=== PATIENT | female | born 1950 | race Caucasian/White ===

== ENCOUNTER 2020-07-26 10:06 | Outpatient (CLI) | payer MEDICARE, BC, SELFPAY ==
--- NOTE | ~2020-07-26 | MM_ITS ---
EXAMINATION: MM screening amairani BI w patrick HISTORY: Screening TECHNIQUE: Craniocaudal and mediolateral oblique 3-D tomosynthesis images were obtained and synthetic 2-D images were generated. CAD analysis was submitted and interpreted. COMPARISON: Comparison to multiple prior studies sequentially, with oldest reviewed study dated 10/19. BREAST PARENCHYMAL COMPOSITION: There are scattered areas of fibroglandular density. FINDINGS: There is no evidence of suspicious mass, calcification, or architectural distortion to sugg est malignancy in either breast. There has been no suspicious interval change. IMPRESSION: 1. No mammographic evidence of malignancy. 2. Recommend routine screening mammography in one year. BI-RADS Category 1: Negative Reviewed, dictated and finalized at location A.
== END 2020-07-26 10:07 | disposition home or self-care (01) ==
LOC: ANHIMG 10:09
PROVIDERS: Visit Provider Internal Medicine
DX: Z12.31 Encounter for screening mammogram for malignant neoplasm of breast (principal)
CPT/HCPCS: 77063; 77067

== ENCOUNTER 2020-12-09 09:24 | Outpatient (CLI) | payer MEDICARE, BC, SELFPAY ==
--- NOTE | 2020-12-09 09:30 | ECG_ITS ---
Measurements Intervals [place] Rate: 80 P: 56 DE: 162 QRS: -4 QRSD: 98 T: 39 QT: 379 QTc: 438 Interpretive Statements SINUS RHYTHM DELAYED PRECORDIAL R/S TRANSITION BASELINE ARTIFACT- I, II, III, AVR, AVL, AVF, V1-V3 BORDERLINE ECG Electronically Signed On 12-09-2020 10:03:12 CDT by Adonis Lamb D.O.
== END 2020-12-09 09:25 | disposition home or self-care (01) ==
PROVIDERS: Visit Provider Orthopaedic Surgery
DX: Z01.818 Encounter for other preprocedural examination (principal); I10 Essential (primary) hypertension
CPT/HCPCS: 93005

== ENCOUNTER 2020-12-16 00:11 | Day surgery (SDC) | payer MEDICARE, BC, SELFPAY ==
[2020-12-06 12:56] VITALS: BMI 24.8
--- NOTE | 2020-12-15 12:37 | PM.IMHP ---
H&P: HPI History of Present Illness Date/Time: 12/15/20 12:37 Chief Complaint: Right foot pain Narrative: 70-year-old woman with right hallux metatarsophalangeal arthrodesis. Failed non operative treatment with injections, custom inserts, accommodative shoes and activity modification. Has done well with previous surgeon left foot. Presents now for surgery the right foot. Review of Systems Review of Systems: All systems reviewed & are unremarkable except as noted in HPI and below Constitutional: Constitutional: Denies fever(s) and Denies headache(s) ENT: Denies headache(s) Cardiovascular: Cardiovascular: Denies chest pain, Denies diaphoresis, Denies lightheadedness, Denies palpitations and Denies dyspnea Respiratory: Respiratory: Denies dyspnea Gastrointestinal: Gastrointestinal: Denies abdominal pain, Denies constipation, Denies nausea and Denies vomiting Genitourinary: Genitourinary: Reports nocturia, Denies dysuria, Denies urinary hesitancy and Denies urinary urgency Musculoskeletal: Musculoskeletal: Reports arthralgias (Left Knee ), Reports joint swelling (Left Knee ) and Reports limited range of motion (ROM limited due to recent surgical intervention LEFT Knee ) Neurologic: Denies headache(s) Endocrine: Endocrine: Denies palpitations PMFSH Past Medical History Medical History Anxiety Arthritis 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 Her Primary is Dr. Hinojosa. She is listed as full code Smoking packs per day: 1 Smoking cigarettes per day: 20.0 Years smoked: 12 Smoking pack-years: 12.00 Smoking status: Former smoker Tobacco type: cigarettes Second hand tobacco smoke exposure: No Smoking end date: 03/12/17 Additional smoking assessment comments: STATES QUITTING 1980 Alcohol intake: current Drinks per week: 2 Substance use: never Substance use type: does not use Gender identity (if verbalized by the patient): Female Spiritual care concerns: No Agree to blood products: Yes Meds Home Medications and Allergies Home Medications Medication Instructions Recorded Confirmed Type alprazolam 0.5 mg tablet 0.5 mg PO .PRN tablet 02/27/19 12/06/20 History cetirizine 10 mg tablet 10 mg PO DAILY PRN 02/27/19 12/06/20 History cholecalciferol (vitamin D3) 50 50 mcg PO DAILY 02/27/19 12/06/20 History mcg (2,000 unit) capsule fluticasone propionate 50 2 spray NASAL DAILY 02/27/19 12/06/20 History mcg/actuation nasal spray,suspension losartan 50 mg PO BID 03/14/19 12/06/20 History lutein extract-zeaxanthin ext 1 cap PO DAILY 03/14/19 12/06/20 History acetaminophen 500 mg capsule 500 mg PO Q6H PRN 09/19/19 12/06/20 History escitalopram oxalate 5 mg tablet See Rx Instructions .ROUTE .COMPLEX 09/19/19 12/06/20 History meloxicam 7.5 mg tablet 7.5 mg PO DAILY 09/19/19 12/06/20 History amoxicillin 500 mg capsule 500 mg PO ONCE #8 cap NS 07/08/20 12/06/20 Rx scopolamine base 1 mg over 3 days 1 patch TRANSDERMAL Q3D PRN #1 ea 10/25/20 12/06/20 Rx transdermal patch turmeric root extract 1,000 mg PO DAILY 12/06/20 12/06/20 History
--- NOTE | 2020-12-15 12:48 | WPDANESEPPF ---
Anes - Initial Pre Proc Eval Procedure: Operation Date: 12/16/20 10:30 Proposed Procedures p Right Hallux Metatarsophalangeal Arthrodesis - Lester Kearns MD Date/Time: 12/15/20 12:48 Surgeon: Lester Kearns MD Pre Op Diagnosis: rt hallux rigidus,rt hallux rigidus arthr,sesamoid Patient Data Age: 70 Gender: F Height: 1.75 m Weight: 76.36 kg Allergies Allergy/AdvReac Type Severity Reaction Status Date / Time No Known Allergies Allergy Verified 12/16/20 09:37 Home Medications Medication Instructions Recorded Confirmed Type alprazolam 0.5 mg tablet 0.5 mg PO .PRN tablet 02/27/19 12/06/20 History cetirizine 10 mg tablet 10 mg PO DAILY PRN 02/27/19 12/06/20 History cholecalciferol (vitamin D3) 50 50 mcg PO DAILY 02/27/19 12/06/20 History mcg (2,000 unit) capsule fluticasone propionate 50 2 spray NASAL DAILY 02/27/19 12/06/20 History mcg/actuation nasal spray,suspension losartan 50 mg PO BID 03/14/19 12/06/20 History lutein extract-zeaxanthin ext 1 cap PO DAILY 03/14/19 12/06/20 History acetaminophen 500 mg capsule 500 mg PO Q6H PRN 09/19/19 12/06/20 History escitalopram oxalate 5 mg tablet See Rx Instructions .ROUTE .COMPLEX 09/19/19 12/06/20 History meloxicam 7.5 mg tablet 7.5 mg PO DAILY 09/19/19 12/06/20 History amoxicillin 500 mg capsule 500 mg PO ONCE #8 cap NS 07/08/20 12/06/20 Rx scopolamine base 1 mg over 3 days 1 patch TRANSDERMAL Q3D PRN #1 ea 10/25/20 12/06/20 Rx transdermal patch turmeric root extract 1,000 mg PO DAILY 12/06/20 12/06/20 History scopolamine base 1 mg over 3 days 1 patch TRANSDERMAL Q3D PRN #1 ea 12/13/20 Rx transdermal patch Patient hx anesthesia problems: none Family hx anesthesia problems: none Results Review: All pre-operative results and documents have been reviewed as part of the pre-operative evaluation. 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 Her Primary is Dr. Hinojosa. She is listed as full code Smoking packs per day: 1 Smoking cigarettes per day: 20.0 Years smoked: 12 Smoking pack-years: 12.00 Smoking status: Former smoker Tobacco type: cigarettes Second hand tobacco smoke exposure: No Smoking end date: 03/12/17 Additional smoking assessment comments: STATES QUITTING 1980 Alcohol intake: current Drinks per week: 3 Substance use: never Substance use type: does not use Living arrangements: with family Gender identity (if verbalized by the patient): Female Spiritual care concerns: No Agree to blood products: Yes Anes - Eval Final PreProcedure Day of Procedure 12/15/20 12:48 Patient weight: normal Heart: regular rate and rhythm Lungs: clear to auscultation and normal air movement Airway: Mallampati scale class II Neurological: alert and oriented Last oral intake: >/= 8 hours ASA classification: II Emergent: no Anesthetic plan: proceed Anesthesia type and monitoring: general LMA and standard monitoring Results Review: All pre-operative results and documents have been reviewed as part of t
[2020-12-16] VITALS (9 sets, daily range): BP systolic 120–148; BP diastolic 61–92; PULSE 63–82; RESP 12–20; TEMP 36.3; O2SAT 97–100
--- NOTE | ~2020-12-16 | XR_ITS ---
EXAMINATION: XR surgery orthopedic DATE: 12/16/2020 11:38 INDICATION: Arthrodesis in the right foot TECHNIQUE: 3 fluoroscopic images of the right forefoot were obtained during procedure performed by Dr Mariama Kearns. Radiologist was not present for the imaging or procedure. The amount of fluoroscopy time u sed during this procedure was 0.2 minutes. COMPARISON: None. FINDINGS: Right first metatarsophalangeal arthrodesis fixed with a cannulated compression screw and dorsal plat e and screws. Alignment is essentially anatomic. No fracture. Mild osteoarthritis at a few of the int erphalangeal joints. Expected small amount of soft tissue gas at the operative bed. IMPRESSION: 1. Instrumented right first metatarsophalangeal arthrodesis, negative for postoperative purposes. Reviewed, dictated and finalized at location B. IMPRESSION: 1. Instrumented right first metatarsophalangeal arthrodesis, negative for posto perative purposes.
--- NOTE | 2020-12-16 06:56 | WPDHPUPDATE1 ---
History and Physical Update Update Date/Time: 12/16/20 06:56 History and Physical has been reviewed, including an updated exam of the patient. There are NO changes in the patient's condition. Risks, benefits, and alternatives have been discussed and questions answered. Patient agrees to proceed with procedure.
[2020-12-16] MEDS: LACTATED RINGERS 1,000 ML 30 ML IV CONT ×2 (09:42→11:43)
[2020-12-16] MEDS: ACETAMINOPHEN 500 MG TABLET 1000 MG PO (09:52)
[2020-12-16] MEDS: KETOROLAC 15 MG/ML VIAL (*BKC) IV PUSH (09:52)
[2020-12-16] MEDS: ceFAZolin 2 GM/D5W 50 ML 2 GM/50 ML BAG IVPB (10:20)
[2020-12-16] MEDS: BUPIVACAINE HCL 0.5% PF 30 ML VIAL INFILTRATE (10:56)
--- NOTE | 2020-12-16 12:06 | W.PM.PROC2 ---
Procedure Note - Detailed Date of Procedure 12/16/20 Pre-op Diagnosis rt hallux rigidus Post-op Diagnosis same Procedure Performed Right hallux metatarsophalangeal arthrodesis Surgeon Lester Kearns MD Coding Support Specialist 1st assistant director of public works Anesthesia general Indications 70-year-old woman with right hallux metatarsophalangeal arthrodesis. Pain with weight-bearing activities. Unrelieved with conservative measures. Presents for operative treatment. Has had same on the left side and did well. Findings Large dorsal osteophyte 1 cm diameter hallux metatarsophalangeal joint. Severe degenerative changes throughout the joint. Description of Procedure What was done: Patient identified in the preoperative holding. Informed consent given. Operative extremity marked. Patient received intravenous antibiotics. Patient brought to the operating room where underwent general anesthetic by anesthesia team. Positioned supine on operating room table. Time-out performed confirming the patient, site of the surgery and the plan. Right foot then prepped and draped in usual sterile surgical fashion using ChloraPrep skin solution. Foot and Ankle exsanguinated and a calf tourniquet inflated to 250 mmHg. Dorsal longitudinal incision made for the hallux over the MTP joint with a 15 blade knife. Hemostasis controlled electrocautery. Dorsal capsulotomy performed in line with skin incision. Metatarsophalangeal joint exposed. Almost complete cartilage loss from the metatarsal head noted. 75% of the dorsal portion of the phalangeal side with complete cartilage loss. Reaming of the joint then performed. Thorough irrigation. Local bone graft packed into the site and the joint was reduced and pinned. Image intensification confirm reduction. Fixation achieved with a dorsal compression plate and a 3.5 mm compression screw. position verified with image intensification. Wound thoroughly irrigated the capsule closed with 0 Vicryl interrupted suture. Subcutaneous tissue repaired with 3-0 Monocryl interrupted suture and skin repaired with 4-0 nylon running suture. Tourniquet released. Good capillary refill noted in the toes. Sterile dressing applied. The patient was then woken from anesthesia, extubated and taken to the recovery room in stable condition. All sponge, needle, instrument counts were correct at the end of the case. Implants Arthrex metatarsophalangeal arthrodesis plate with locking and nonlocking screws. 3.5 mm headless compression screw x1. Estimated Blood Loss 10 Tourniquet Time 60 Drains No Packing No Pathology none sent Complications None Condition stable Disposition PACU
== END 2020-12-16 14:00 | disposition home or self-care (01) ==
PROVIDERS: Visit Provider Orthopaedic Surgery
PROC: (CPT 28750; principal; 2020-12-16 10:30)
DX: M20.21 Hallux rigidus, right foot (principal); M19.071 Primary osteoarthritis, right ankle and foot; I10 Essential (primary) hypertension; I34.1 Nonrheumatic mitral (valve) prolapse; F41.9 Anxiety disorder, unspecified; I73.00 Raynaud's syndrome without gangrene; Z87.891 Personal history of nicotine dependence
CPT/HCPCS: 28750; A9270; C1769; J0690; J1100; J1200; J1885; J2405; J2704; J7120

== ENCOUNTER 2021-09-05 08:39 | Outpatient (CLI) | payer MEDICARE, BC, SELFPAY ==
--- NOTE | ~2021-09-05 | MM_ITS ---
EXAMINATION: MM screening amairani BI w patrick HISTORY: Screening TECHNIQUE: Craniocaudal and mediolateral oblique 3-D tomosynthesis images were obtained and synthetic 2-D images were generated. CAD analysis was submitted and interpreted. COMPARISON: Comparison to multiple prior studies sequentially, with oldest reviewed study dated 10/19. BREAST PARENCHYMAL COMPOSITION: Breast composed of scattered areas of fibroglandular density FINDINGS: There is no evidence of suspicious mass, calcification, or architectural distortion to sugg est malignancy in either breast. There has been no suspicious interval change. IMPRESSION: 1. No mammographic evidence of malignancy. 2. Recommend routine screening mammography in one year. BI-RADS Category 1: Negative Reviewed, dictated and finalized at location A.
== END 2021-09-05 08:40 | disposition home or self-care (01) ==
LOC: ANHIMG 08:43
PROVIDERS: Visit Provider Internal Medicine
DX: Z12.31 Encounter for screening mammogram for malignant neoplasm of breast (principal)
CPT/HCPCS: 77063; 77067

== ENCOUNTER 2021-11-22 12:53 | Outpatient (CLI) | payer MEDICARE, BC, SELFPAY ==
--- NOTE | ~2021-11-22 | DEXA_ITS ---
Bone Density Report Name: SAMMIE HUNTLEY Age: 71 Sex: Female Ethnicity: White Date of : 1950 Indication: osteopenia; postmenopausal Referring Provider: TURKS AND CAICOS ISLANDER, GEOVANY Farooq Study: Bone densitometry was performed. Exam Date: November 22, 2021 Accession number: [id number] Bone Density: Region BMD T-score Z-score Classification AP Spine(L1-L4) 1.015 -0.3 1.9 Normal Femoral Neck (Left) 0.651 -1.8 0.1 Osteopenia Total Hip (Left) 0.790 -1.2 0.3 Osteopenia Femoral Neck (Right) 0.733 -1.0 0.8 Normal Total Hip (Right) 0.752 -1.6 0.0 Osteopenia Total Hip Mean 0.771 -1.4 0.2 Osteopenia World Health Organization criteria for BMD impression classify patients as: Normal (T-score at or above -1.0), Osteopenia (T-score between -1.0 and -2.5), or Osteoporosis (T-score at or below -2.5). 10-year Fracture Risk(1): Major Osteoporotic Fracture 11% Hip Fracture 1.9% Reported Risk Factors: [place] (), Neck BMD=0.651, BMI=26.7 (1) FRAX(R) Version 3.08. Fracture probability calculated for an untreated patient. Fracture probability may be lower if the patient has received treatment. Previous Exams: Region Exam Age BMD T-score BMD Change BMD Change Date g/cm2 vs Baseline vs Previous Total Hip(Left) 11/22/2021 71 0.790 -1.2 0.035 (4.6%)* 0.035 (4.6%)* 07/16/2018 67 0.755 -1.5 Total Hip(Right) 11/22/2021 71 0.752 -1.6 0.029 (4.1%)* 0.029 (4.1%)* 07/16/2018 67 0.722 -1.8 *Denotes significance at 95% confidence level, LSC for Total Hip = 0.027 g/cm2 Clinical Information Provided by Patient: Has used the following medications: Vitamin D Patient maximum height was 69.5 Menopause Age: 42 Drinks caffeinated beverages Onset of menses at age 10 Number of children 0 Impression: The patient has low bone mass, based on the Left Femoral Neck T-score. The patient has an estimated ten-year risk of hip fracture of 1.9% and an estimated ten-year risk of major fracture of 11%, based on the WHO FRAX algorithm. No significant bone loss was observed. Discussion: BONE DENSITY IS LOW AT ONE OR MORE SKELETAL SITES. This patient's lowest T-score is low at one or more skeletal sites. It meets the World Health Organization's (WHO) criteria for ?low bone mass? (T-score between -1.0 and -2.5). The patient's 10-year risk of fracture as calculated by FRAX is less than the threshold where pharmacological therapy is recommended by the National Osteoporosis Foundation (NOF).
== END 2021-11-22 12:54 | disposition home or self-care (01) ==
PROVIDERS: Visit Provider Internal Medicine
DX: Z78.0 Asymptomatic menopausal state (principal); M85.852 Other specified disorders of bone density and structure, left thigh; M85.851 Other specified disorders of bone density and structure, right thigh
CPT/HCPCS: 77080

== ENCOUNTER 2022-06-09 00:45 | Day surgery (SDC) | payer MEDICARE, BC, SELFPAY ==
[2022-05-26 15:00] VITALS: BMI 25.1
[2022-06-09 07:47] VITALS: BP 157/70; PULSE 74; RESP 16; TEMP 36.7; O2SAT 99; BMI 25.7
--- NOTE | 2022-06-09 07:56 | WPDANESEPPF ---
Anes - Initial Pre Proc Eval Procedure: Operation Date: 06/09/22 08:30 Proposed Procedures p Screening Colonoscopy - Amrit Aleman MD Date/Time: 06/09/22 07:56 Surgeon: Amrit Aleman MD Pre Op Diagnosis: neoplasm screening Patient Data Age: 71 Gender: F Height: 1.75 m Weight: 78.9 kg Last Vital Signs Temp 36.7 C 06/09/22 07:47 Pulse 74 06/09/22 07:47 Resp 16 06/09/22 07:47 BP 157/70 H 06/09/22 07:47 Pulse Ox 99 06/09/22 07:47 O2 Del Method Room Air 06/09/22 07:47 Allergies Allergy/AdvReac Type Severity Reaction Status Date / Time No Known Allergies Allergy Verified 06/09/22 07:46 Home Medications Medication Instructions Recorded Confirmed Type alprazolam 0.5 mg tablet 0.5 mg PO .PRN ANXIETY 02/27/19 06/09/22 History cholecalciferol (vitamin D3) 50 50 mcg PO DAILY 02/27/19 06/09/22 History mcg (2,000 unit) capsule fluticasone propionate 50 2 spray intranasal DAILY 02/27/19 06/09/22 History mcg/actuation nasal spray,suspension losartan 50 mg tablet 50 mg PO BID 03/14/19 06/09/22 History acetaminophen 500 mg capsule 500 mg PO Q6H PRN Pain 09/19/19 06/09/22 History escitalopram oxalate 5 mg tablet See Rx Instructions .Route .COMPLEX 09/19/19 06/09/22 History cetirizine 10 mg tablet (24Hour 10 mg PO DAILY Congestion 07/05/21 06/09/22 History Allergy) lutein extract 15 mg-zeaxanthin 1 cap PO DAILY 07/05/21 06/09/22 History extract 0.7 mg capsule meloxicam 7.5 mg tablet 7.5 mg PO DAILY 07/05/21 06/09/22 History guaifenesin 600 mg tablet, 600 mg PO BID PRN Congestion 05/26/22 06/09/22 History extended release 12 hr (Mucinex) psyllium 1 packet PO DAILY 05/26/22 06/09/22 History Patient hx anesthesia problems: post op nausea/vomiting Family hx anesthesia problems: none Results Review: All pre-operative results and documents have been reviewed as part of the pre-operative evaluation. 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 Encounter for postoperative care Hallux rigidus of right foot HTN (hypertension) Left shoulder pain MVP (mitral valve prolapse) Raynaud's disease b/l hands Right hip pain Right shoulder pain Rotator cuff tendonitis Spinal stenosis Trochanteric bursitis, right hip Vision abnormalities Wears glasses Surgical History Surgical History History of cholecystectomy History of tonsillectomy Status post total knee replacement, left Family History Family History Father Hypertension Family history of arthritis Family history of malignant neoplasm Social History Social History Social History: Patient lives with Cliff, whom she designates as MDM. Her Primary is Dr. Hinojosa. She is listed as full code Smoking packs per day: 1 Smoking cigarettes per day: 20.0 Years smoked: 12 Smoking pack-years: 12.00 Smoking status: Former smoker Tobacco type: cigarettes Second hand tobacco smoke exposure: No Smoking end date: 03/12/17 Additional smoking assessment comments: STATES QUITTING 1980 Alcohol intake: current Drinks per week: 3 Alcohol use details: 1 drink occasionally in social settings Substance use: never Substance use type: does not use Living arrangements: with family Gender identity (if verbalized by the patient): Female Spiritual care concerns: No Agree to blood products: Yes Anes - Eval Final PreProcedure Day of Procedure 06/09/22 07:56 Patient weight: normal Heart: regular rate and rhythm Lungs: clear to auscultation Airway: Mallampati scale class II Neurological: alert and o
[2022-06-09] MEDS: LACTATED RINGERS 1,000 ML 150 ML IV CONT (07:58)
[2022-06-09] MEDS: ONDANSETRON INJ 4 MG/2 ML VIAL IV PUSH (08:05)
--- NOTE | 2022-06-09 08:19 | PM.HPGS ---
History of Present Illness History of Present Illness Consent: Risks, benefits, and alternatives have been discussed and questions answered. Patient agrees to proceed with procedure. Chief complaint: neoplasm screening Narrative: Josefa Pate is a 71 year old female Presents for screening colonoscopy. Patient's current weight appetite and bowel movements are normal. Patient denies abdominal pain. She has had no bleeding. Family history noncontributory. Patient has previous colonoscopy 10 years ago was unremarkable. By history. Review of Systems Review of Systems: Review of systems is noncontributory. 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 Encounter for postoperative care Hallux rigidus of right foot HTN (hypertension) Left shoulder pain MVP (mitral valve prolapse) Raynaud's disease b/l hands Right hip pain Right shoulder pain Rotator cuff tendonitis Spinal stenosis Trochanteric bursitis, right hip Vision abnormalities Wears glasses Surgical History Surgical History History of cholecystectomy History of tonsillectomy Status post total knee replacement, left Family History Family History Father Hypertension Family history of arthritis Family history of malignant neoplasm Social History Social History Social History: Patient lives with Cliff, whom she designates as MDM. Her Primary is Dr. Hinojosa. She is listed as full code Smoking packs per day: 1 Smoking cigarettes per day: 20.0 Years smoked: 12 Smoking pack-years: 12.00 Smoking status: Former smoker Tobacco type: cigarettes Second hand tobacco smoke exposure: No Smoking end date: 03/12/17 Additional smoking assessment comments: STATES QUITTING 1980 Alcohol intake: current Drinks per week: 3 Alcohol use details: 1 drink occasionally in social settings Substance use: never Substance use type: does not use Living arrangements: with family Gender identity (if verbalized by the patient): Female Spiritual care concerns: No Agree to blood products: Yes Meds Home Medications and Allergies Home Medications Medication Instructions Recorded Confirmed Type alprazolam 0.5 mg tablet 0.5 mg PO .PRN ANXIETY 02/27/19 06/09/22 History cholecalciferol (vitamin D3) 50 50 mcg PO DAILY 02/27/19 06/09/22 History mcg (2,000 unit) capsule fluticasone propionate 50 2 spray intranasal DAILY 02/27/19 06/09/22 History mcg/actuation nasal spray,suspension losartan 50 mg tablet 50 mg PO BID 03/14/19 06/09/22 History acetaminophen 500 mg capsule 500 mg PO Q6H PRN Pain 09/19/19 06/09/22 History escitalopram oxalate 5 mg tablet See Rx Instructions .Route .COMPLEX 09/19/19 06/09/22 History cetirizine 10 mg tablet (24Hour 10 mg PO DAILY Congestion 07/05/21 06/09/22 History Allergy) lutein extract 15 mg-zeaxanthin 1 cap PO DAILY 07/05/21 06/09/22 History extract 0.7 mg capsule meloxicam 7.5 mg tablet 7.5 mg PO DAILY 07/05/21 06/09/22 History guaifenesin 600 mg tablet, 600 mg PO BID PRN Congestion 05/26/22 06/09/22 History extended release 12 hr (Mucinex) psyllium 1 packet PO DAILY 05/26/22 06/09/22 History Allergies Allergy/AdvReac Type Severity Reaction Status Date / Time No Known Allergies Allergy Verified 06/09/22 07:46 Vital Signs Vital Signs - 24 hr 06/09/22 07:47 Temperature 98.0 F Pulse Rate 74 Respiratory Rate 16 Blood Pressure 157/70 H Pulse Oximetry 99 Oxygen Delivery Room Air Exam Narrative: Physical exam reveals patient to be alert. Vital signs stable. HEENT exam is u
[2022-06-09 08:49] VITALS: BP 124/69; PULSE 67; RESP 14; O2SAT 96
[2022-06-09 08:59] VITALS: BP 133/79; PULSE 68; RESP 18; O2SAT 99
[2022-06-09 09:09] VITALS: BP 143/88; PULSE 70; RESP 18; O2SAT 99
== END 2022-06-09 09:17 | disposition home or self-care (01) ==
PROVIDERS: Visit Provider Internal Medicine Gastroenterology
PROC: 0DJD8ZZ Inspection of Lower Intestinal Tract, Via Natural or Artificial Opening Endoscopic (ICD-10-PCS; CPT 45378; principal; 2022-06-09 08:30)
DX: Z12.11 Encounter for screening for malignant neoplasm of colon (principal); K64.8 Other hemorrhoids; I10 Essential (primary) hypertension; I73.00 Raynaud's syndrome without gangrene; I34.1 Nonrheumatic mitral (valve) prolapse; F41.9 Anxiety disorder, unspecified; M47.22 Other spondylosis with radiculopathy, cervical region; Z87.891 Personal history of nicotine dependence
CPT/HCPCS: G0121; J2405; J2704; J7120

== ENCOUNTER 2023-01-29 10:18 | Outpatient (CLI) | payer MEDICARE, BC, SELFPAY ==
[2023-01-29 11:01] LABS: Basophils Absolute Auto 0.1 K/mm3 (0.0-0.1); Basophils Percent Auto 1.7 % (0.2-1.2); Eosinophils Absolute Auto 0.3 K/mm3 (0-0.3); Eosinophils Percent Auto 5.2 % (0-4.4); Hematocrit 41.9 % (37.0-47.0); Hemoglobin 13.2 g/dL (12.0-15.0); Immature Granulocyte Absolute 0.02 K/mm3 (0.00-0.031); Immature Granulocyte Percent A 0.4 % (0-0.5); Lymphocytes Absolute Auto 1.35 K/mm3 (0.9-3.2); Lymphocytes Percent Auto 28.1 % (18.3-44.2); Mean Corpuscular HGB Conc 31.5 g/dl (32-36); Mean Corpuscular Hemoglobin 28.8 pg (26-34); Mean Corpuscular Volume 91.5 fl (80-100); Mean Platelet Volume 9.9 fl (7.4-10.4); Monocytes Absolute Auto 0.4 K/mm3 (0.1-0.6); Monocytes Percent Auto 8.5 % (2.6-8.5); Neutrophils Absolute Auto 2.7 K/mm3 (1.3-6.7); Neutrophils Percent Auto 56.1 % (45.5-73.1); Platelet Count Result 248 k/mm3 (150-375); Red Blood Count 4.58 M/mm3 (4.2-5.4); Red Cell Distribution Width 14.5 % (11.5-14.5); White Blood Count 4.8 K/mm3 (4.5-10.0)
[2023-01-29 11:03] LABS: Appearance Urine Clear (Clear); Bilirubin Urine Negative (Negative); Blood Urine Negative (Negative); Color Urine Yellow (Yellow); Glucose Urine UA Negative (Negative); Ketones Urine Negative (Negative); Leukocyte Esterase Ur Negative LEU/UL (Negative); Nitrate Urine Negative (Negative); Protein Urine Negative (Negative); Specific Grav Ur 1.011 (1.001-1.035); Urobilinogen Urine 0.2 mg/dL (<2.0)
[2023-01-29 11:10] LABS: Add Urine Microscopic? NO
[2023-01-29 11:11] LABS: Anion Gap 8 mmol/L (8-16); Blood Urea Nitrogen 17 mg/dL (7-17); Calcium 9.3 mg/dL (8.4-10.2); Carbon Dioxide 31 mmol/L (22-30); Chloride 101 mmol/L (98-107); Estimated Glomerular Filt Rate > 60; Glucose 99 mg/dL (65-110); Potassium 4.2 mmol/L (3.4-5.0); Sodium 140 mmol/L (137-145)
--- NOTE | 2023-01-29 11:23 | ECG_ITS ---
Measurements Intervals [place] Rate: 70 P: 25 [place]: 170 QRS: -4 QRSD: 93 T: 44 QT: 396 QTc: 429 Interpretive Statements SINUS RHYTHM DELAYED PRECORDIAL R/S TRANSITION BASELINE WANDER- V4 BORDERLINE ECG COMPARED TO ECG 12/09/2020 09:45:55 NO SIGNIFICANT CHANGES Electronically Signed On 01-29-2023 11:42:36 SNAP ATTACHER by Adonis Lamb D.O.
== END 2023-01-29 10:19 | disposition home or self-care (01) ==
PROVIDERS: PCP Internal Medicine; Visit Provider Nurse Practitioner Family
DX: M17.10 Unilateral primary osteoarthritis, unspecified knee (principal); I10 Essential (primary) hypertension; R53.83 Other fatigue; R94.31 Abnormal electrocardiogram [ECG] [EKG]
CPT/HCPCS: 36415; 80048; 81003; 85025; 93005

== ENCOUNTER 2023-02-21 15:54 | Outpatient (CLI) | payer MEDICARE, BC, SELFPAY ==
--- NOTE | ~2023-02-21 | MM_ITS ---
EXAMINATION: MM screening amairani BI w patrick HISTORY: Screening TECHNIQUE: Craniocaudal and mediolateral oblique 3-D tomosynthesis images were obtained and synthetic 2-D images were generated. CAD analysis was submitted and interpreted. COMPARISON: Comparison to multiple prior studies sequentially, with oldest reviewed study dated 10/19. BREAST PARENCHYMAL COMPOSITION: The breasts are heterogeneously dense, which may obscure small masses FINDINGS: There is no evidence of suspicious mass, calcification, or architectural distortion to sugg est malignancy in either breast. There has been no suspicious interval change. IMPRESSION: 1. No mammographic evidence of malignancy. 2. Recommend routine screening mammography in one year. BI-RADS Category 1: Negative Reviewed, dictated and finalized at location A. D ATTENDANT
== END 2023-02-21 15:55 | disposition home or self-care (01) ==
LOC: ANHIMG 15:57
PROVIDERS: PCP Internal Medicine; Visit Provider Internal Medicine
DX: Z12.31 Encounter for screening mammogram for malignant neoplasm of breast (principal)
CPT/HCPCS: 77063; 77067

== ENCOUNTER 2023-04-03 09:54 | Outpatient (CLI) | payer MEDICARE, BC, SELFPAY ==
[2023-04-03 11:27] LABS: Basophils Absolute Auto 0.1 K/mm3 (0.0-0.1); Basophils Percent Auto 1.3 % (0.2-1.2); Eosinophils Absolute Auto 0.3 K/mm3 (0-0.3); Eosinophils Percent Auto 4.8 % (0-4.4); Hematocrit 41.7 % (37.0-47.0); Hemoglobin 13.1 g/dL (12.0-15.0); Immature Granulocyte Absolute 0.01 K/mm3 (0.00-0.031); Immature Granulocyte Percent A 0.2 % (0-0.5); Lymphocytes Absolute Auto 1.17 K/mm3 (0.9-3.2); Lymphocytes Percent Auto 22.5 % (18.3-44.2); Mean Corpuscular HGB Conc 31.4 g/dl (32-36); Mean Corpuscular Hemoglobin 28.3 pg (26-34); Mean Corpuscular Volume 90.1 fl (80-100); Mean Platelet Volume 9.8 fl (7.4-10.4); Monocytes Absolute Auto 0.4 K/mm3 (0.1-0.6); Monocytes Percent Auto 8.4 % (2.6-8.5); Neutrophils Absolute Auto 3.3 K/mm3 (1.3-6.7); Neutrophils Percent Auto 62.8 % (45.5-73.1); Platelet Count Result 225 k/mm3 (150-375); Red Blood Count 4.63 M/mm3 (4.2-5.4); Red Cell Distribution Width 14.2 % (11.5-14.5); White Blood Count 5.2 K/mm3 (4.5-10.0)
[2023-04-03 11:29] LABS: Appearance Urine Clear (Clear); Bilirubin Urine Negative (Negative); Blood Urine Negative (Negative); Color Urine Yellow (Yellow); Glucose Urine UA Negative (Negative); Ketones Urine Negative (Negative); Leukocyte Esterase Ur Negative LEU/UL (Negative); Nitrate Urine Negative (Negative); Protein Urine Negative (Negative); Specific Grav Ur 1.011 (1.001-1.035); Urobilinogen Urine 0.2 mg/dL (<2.0)
[2023-04-03 11:37] LABS: Urine Cotinine NEGATIVE
[2023-04-03 11:40] LABS: Albumin Level 4.2 g/dL (3.5-5.1); Anion Gap 5 mmol/L (8-16); Blood Urea Nitrogen 17 mg/dL (7-17); Calcium 9.1 mg/dL (8.4-10.2); Carbon Dioxide 32 mmol/L (22-30); Chloride 102 mmol/L (98-107); Estimated Glomerular Filt Rate > 60; Glucose 90 mg/dL (65-110); Potassium 4.5 mmol/L (3.4-5.0); Sodium 139 mmol/L (137-145)
[2023-04-03 11:44] LABS: INR 0.9; Prothrombin Time 12.7 Seconds (11.1-14.7)
[2023-04-03 11:45] LABS: Partial Thromboplastin Time 29.5 SECONDS (22.3-36.8)
[2023-04-03 11:48] LABS: Add Urine Microscopic? NO
[2023-04-03 12:41] LABS: MRSA (PCR) NOT DETECTED (NOT DETECTE)
== END 2023-04-03 09:55 | disposition home or self-care (01) ==
LOC: ANHSURGERY 09:58
PROVIDERS: PCP Internal Medicine; Visit Provider Orthopaedic Surgery
DX: M17.11 Unilateral primary osteoarthritis, right knee (principal); Z01.818 Encounter for other preprocedural examination
CPT/HCPCS: 80048; 80307; 81003; 82040; 83036; 85025; 85610; 85730; 87641

== ENCOUNTER 2023-04-17 00:24 | Day surgery (SDC) | payer MEDICARE, BC, SELFPAY ==
[2023-04-03 10:19] VITALS: BP 164/70; PULSE 80; RESP 16; TEMP 37.1; O2SAT 97; BMI 26.2
--- NOTE | 2023-04-03 10:35 | PC.NURSE ---
Report to the Outpatient Waiting Room, entrance under the green pavilion located off [facility], at time __6:00AM on date ___04/17/23____. Planned Procedure Time: __7:30AM . Time changes happen often and if your time is changed the preop area will call you the afternoon before. - You and your visitor will be asked to self-screen and do not enter if you have any COVID symptoms. - A mask is optional within the hospital at this time. Patients may have clear liquids (water, carbonated beverages, clear teas, apple juice) until 3 hours prior to surgery with a maximum of 20 ounces. - No food from midnight until time of surgery. Take the following medications with a SIP of water the morning of surgery: __ESCITALOPRAM, ALPRAZOLAM NEEDED DO NOT STOP ANY OF YOUR OTHER PRESCRIPTION MEDICATIONS PRIOR TO SURGERY ?EXCEPT THE FOLLOWING Medications to discontinue per physician __HOLD ALL VITAMINS/SUPPLEMENTS 3 DAYS PRE-OP PER ANESTHESIA Date to take last dose 04/13/23 Please no make-up, nail luxembourgish, hairspray, perfume, deodorant, or body powder the day of surgery. No jewelry (including any body piercings) or valuables the day of surgery, leave them at home. Please take a shower or bath the night before, or the morning of, surgery with an antibacterial soap. Wear comfortable, loose fitting clothing. - Jewelry must be removed prior to entering the operating room. Rings and piercings that are not removed may be cut off. - The hospital will not accept responsibility for valuables. - Please leave all valuables, including medications, at home the day of surgery. If you are going home after surgery, a licensed electric lift truck driver must drive you home. - NO public transportation without another adult if you receive anesthesia. - We recommend that an adult stay with you for 24 hours following discharge. - We also recommend that you do not drive, make important decision, drink alcoholic beverages, or take any drugs that were not prescribed by your health care provider for at least 24 hours after your discharge time. Follow any additional instructions given to you from your surgeon. If you or anyone in your household have experienced Covid symptoms in the past week, please notify your surgeon or the nurse liaison at the phone number below for possible testing. Telephone instructions given to ___PATIENT and asked if any additional questions and then verbalized understanding. Patient advised to call surgeon office or pre surgery nurse liaison [phone] if any additional questions.
[2023-04-17] VITALS (13 sets, daily range): BP systolic 124–174; BP diastolic 53–86; PULSE 70–97; RESP 10–18; TEMP 36.3–37.1; O2SAT 93–100
--- NOTE | ~2023-04-17 | XR_ITS ---
EXAMINATION: [id number] DATE: 04/17/2023 11:06 INDICATION: Postoperative evaluation following right total knee arthroplasty. TECHNIQUE: Anteroposterior and lateral views of the right knee were obtained. COMPARISON: Radiographs dated 01/01/2023 FINDINGS: Right total knee arthroplasty without patellar resurfacing appears well seated and in near anatomic a lignment. No fractures identified. Expected postoperative subcutaneous, intramedullary and intra-art icular gas. IMPRESSION: 1. Right total knee arthroplasty, negative for postoperative purposes. Reviewed, dictated and finalized at location A. CAL BILLER CODER
--- NOTE | 2023-04-17 06:45 | WPDANESEPPF ---
Anes - Initial Pre Proc Eval Procedure: Operation Date: 04/17/23 07:30 Proposed Procedures p Right Total Knee Arthroplasty - Russell Elena MD Date/Time: 04/17/23 06:45 Surgeon: Russell Elena MD Pre Op Diagnosis: Right Knee Osteo Arthritis Patient Data Age: 72 Gender: F Height: 1.76 m Weight: 81.3 kg Last Vital Signs Temp 37.1 C 04/03/23 10:19 Pulse 80 04/03/23 10:19 Resp 16 04/03/23 10:19 BP 164/70 H 04/03/23 10:19 Pulse Ox 97 04/03/23 10:19 O2 Del Method Room Air 04/03/23 10:19 Allergies Allergy/AdvReac Type Severity Reaction Status Date / Time No Known Allergies Allergy Verified 04/06/23 09:01 Home Medications Medication Instructions Recorded Confirmed Type alprazolam 0.5 mg tablet 0.5 mg PO .PRN ANXIETY 02/27/19 04/06/23 History cholecalciferol (vitamin D3) 50 50 mcg PO DAILY 02/27/19 04/06/23 History mcg (2,000 unit) capsule fluticasone propionate 50 2 spray intranasal DAILY 02/27/19 04/06/23 History mcg/actuation nasal spray,suspension losartan 50 mg tablet 50 mg PO BID 03/14/19 04/06/23 History acetaminophen 500 mg capsule 1,000 mg PO Q6H PRN Pain 09/19/19 04/06/23 History escitalopram oxalate 5 mg tablet See Rx Instructions .Route .COMPLEX 09/19/19 04/06/23 History cetirizine 10 mg tablet (24Hour 10 mg PO DAILY Congestion 07/05/21 04/06/23 History Allergy) lutein extract 15 mg-zeaxanthin 1 cap PO DAILY 07/05/21 04/06/23 History extract 0.7 mg capsule meloxicam 7.5 mg tablet 7.5 mg PO DAILY 07/05/21 04/06/23 History guaifenesin 600 mg tablet, 600 mg PO BID PRN Congestion 05/26/22 04/06/23 History extended release 12 hr (Mucinex) psyllium 1 packet PO DAILY 05/26/22 04/06/23 History calcium carbonate 500 mg calcium 500 mg PO BID PRN Indigestion 04/03/23 04/06/23 History (1,250 mg) chewable tablet chlorhexidine gluconate 4 % 1 applic topical ONCE #237 mL 04/04/23 04/06/23 Rx topical liquid (Hibiclens) scopolamine base 1 mg over 3 days 1 patch transdermal Q72H PRN 04/06/23 Rx transdermal patch nausea and vomiting #4 ea Patient hx anesthesia problems: none Family hx anesthesia problems: none Results Review: All pre-operative results and documents have been reviewed as part of the pre-operative evaluation. [facility] Past Medical History Medical History Adhesive capsulitis of left shoulder Anxiety Arthritis Cervical spondylosis with radiculopathy Degenerative joint disease of knee DJD of AC (acromioclavicular) joint Encounter for postoperative care Hallux rigidus of right foot HTN (hypertension) Left shoulder pain MVP (mitral valve prolapse) Nausea after anesthesia Raynaud's disease b/l hands Right hip pain Right shoulder pain Rotator cuff tendonitis Spinal stenosis Trochanteric bursitis, right hip Vision abnormalities Wears glasses Surgical History Surgical History History of cholecystectomy History of tonsillectomy Status post total knee replacement, left Family History Family History Father Hypertension Family history of arthritis Family history of malignant neoplasm Social History Social History Social History: Patient lives with Cliff, whom she designates as MDM. Her Primary is Dr. Hinojosa. She is listed as full code Smoking packs per day: 1 Smoking cigarettes per day: 20.0 Years smoked: 12 Smoking pack-years: 12.00 Smoking status: Former smoker Tobacco type: cigarettes Second hand tobacco smoke exposure: No Smoking end date: 09/09/82 Additional smoking assessment comments: STATES QUITTING 1980 Alcohol intake: current Drinks per week: 3 Alcohol use details: 1 drink occasionally in social settings Substance use: never Substance use type: does not use Living
[2023-04-17] MEDS: LACTATED RINGERS 1,000 ML 30 ML IV CONT ×2 (07:10→10:36)
[2023-04-17] MEDS: TRANEXAMIC ACID 1,000MG/ISO100 1,000 MG/100 ML BAG 200 MG IVPB (07:10)
[2023-04-17] MEDS: ACETAMINOPHEN 500 MG TABLET 1000 MG PO (07:10)
--- NOTE | 2023-04-17 07:17 | WPDHPUPDATE1 ---
History and Physical Update Update Date/Time: 04/17/23 07:17 History and Physical has been reviewed, including an updated exam of the patient. There are NO changes in the patient's condition. Risks, benefits, and alternatives have been discussed and questions answered. Patient agrees to proceed with procedure.
[2023-04-17] MEDS: ceFAZolin 2 GM/D5W 50 ML 2 GM/50 ML BAG IVPB ×3 (07:44→23:55)
--- NOTE | 2023-04-17 08:02 | WPDANESPNB ---
Anes - Peripheral Nerve Block Date/Time: 04/17/23 08:02 I have discussed with the patient/family/POA the placement of a peripheral nerve block for post-operative pain management, including associated risks, benefits, complications, and side effects. Alternative methods of post-operative analgesia were detailed. Questions were solicited and answers provided to the satisfaction of the patient/family/POA. Time-Out: A pre-procedural Time-Out was completed immediately before starting the procedure and confirmed: Patient Identification, Site, Procedure, Patient Position and the Availability of Requisite Equipment. Clinical Indications: Acute post-operative pain management requested by the operative surgeon. Nerve Block Insertion Note Anes-nerve block: adductor canal right Patient position: supine Skin prep: chlorhexidine Needle: 22 gauge, stimulating, insulated echogenic needle. Needle length: 80 mm Technique: ultrasound Injectate: bupivacaine 0.5% with epi 5 mcg/ml (30) Observations: tolerated well Complications: none Procedure start time:: 720 Procedure end time:: 725
--- NOTE | 2023-04-17 08:10 | SUR.PREOP ---
pt came in witha scopalamine patch on from her primary doctor. damaris aware.
[2023-04-17] MEDS: GENTAMICIN BONE CEMENT REFOBACIN 1 EACH TOPICAL (08:16)
--- NOTE | 2023-04-17 10:21 | W.PM.PROC2 ---
Procedure Note - Detailed Date of Procedure 04/17/23 Pre-op Diagnosis Right Knee Osteo Arthritis Post-op Diagnosis Same Procedure Performed R TKA Surgeon Russell Elena MD Anesthesia General Description of Procedure THE RIGHT KNEE WAS PREPPED AND DRAPED IN THE STERILE FASHION. THERE WAS A 15 DEGREE FLEXION CONTRACTURE. A MIDLINE SKIN INCISION WAS MADE. A MEDIAL PARAPATELLAR ARTHROTOMY WAS MADE. THE PATELLA WAS EVERTED. THERE WAS TRICOMPARTMENT DJD. THERE WAS MINIMAL PATELLA DJD. AN INTRAMEDULLARY CHEMA WAS PLACED IN THE FEMUR. A DISTAL FEMORAL CUT WAS MADE IN 5 DEGREES OF VALGUS REMOVING APPROXIMATELY 12 MM OF BONE FROM THE DISTAL FEMUR. THE FEMUR WAS SIZED TO 67.5. A 67.5 FEMORAL CUTTING BLOCK WAS PLACED IN 3 DEGREES OF EXTERNAL ROTATION AND IN ALIGNMENT WITH CHEYANNE'S LINE AND THE TRANSEPICONDYLAR AXIS. ANTERIOR POSTERIOR AND CHAMFER CUTS WERE MADE. THE CUTS WERE EXCELLENT. NEXT AN INTRAMEDULLARY CUTTING GUIDE WAS PLACED IN THE TIBIA. A TRANS TIBIAL CUT WAS MADE ALONG THE LONG AXIS OF THE TIBIA. APPROXIMATELY 10 MM OF BONE WAS REMOVED FROM THE HIGH SIDE OF THE TIBIA. THE TIBIA WAS THEN PLANED TO A SMOOTH SURFACE. POSTERIOR FEMORAL OSTEOPHYTES WERE REMOVED FROM THE FEMORAL CONDYLES. A 75 TIBIAL TRIAL WAS PLACED IN ALIGNMENT WITH THE 1/3 MEDIAL ASPECT OF THE TIBIAL TUBERCLE. THEN A 67.5 FEMORAL TRIAL COMPONENT WAS PLACED. BOTH HAD EXCELLENT FITS. EVENTUALLY A 10 MM CR POLYETHYLENE TRIAL COMPONENT WAS PLACED. THE KNEE WAS TAKEN THROUGH A RANGE OF MOTION. THE KNEE CAME OUT TO FULL EXTENSION. THERE WAS NO ABNORMAL TILT TO THE PATELLA. THERE WAS GOOD A/P AND VARUS/VALGUS STABILITY. THERE WAS NO EXCESSIVE ROLL BACK WITH FLEXION. THE TRIAL COMPONENTS WERE REMOVED. THEN A 67.5 FEMORAL COMPONENT AND 75 TIBIAL COMPONENT WITH A 10 CR POLYETHYLENE COMPONENT WERE CEMENTED INTO PLACE. ONCE THE CEMENT WAS HARD THE KNEE WAS TAKEN THROUGH A ROM AGAIN AND FOUND TO BE STABLE WITH NO PATELLA TILT NO EXCESSIVE ROLL BACK WITH FLEXION AND GOOD STABILITY WITH COMPLETE AND FULL EXTENSION. THE KNEE WAS IRRIGATED WITH STERILE BETADINE AND WATER FOR ABOUT 3 MINUTES. THE BLEEDERS WERE CAUTERIZED. THE ARTHROTOMY WAS REPAIRED WITH NUMBER 1 VICRYL. THE SUB CUTANEOUS LAYER WITH 2-0 VICRYL AND THE SKIN WITH ALFONSO. THE WOUND WAS WASHED AND A STERILE DRESSING WAS APPLIED. PATIENT WAS EXTUBATED. Estimated Blood Loss -150.0 Pathology None sent Complications No immediate complications Condition Stable Disposition PACU
[2023-04-17] MEDS: fentaNYL CITRATE INJ (*CRX) 100 MCG/2 ML VIAL 25 MCG IV PUSH ×4 (10:53→11:25)
[2023-04-17] MEDS: oxyCODONE/ACETAMINOPHEN (*CRX) 5-325 MG TABLET 2 TABLET PO ×3 (12:40→22:32)
[2023-04-17] MEDS: ONDANSETRON INJ 4 MG/2 ML VIAL IV PUSH (12:40)
--- NOTE | 2023-04-17 14:30 | ADMGEN ---
This patient, Josefa Pate, was admitted to [facility] Surg Room 322-01. Patient/family oriented to hospital policies and general routines including ID bracelet, bed and alarms, visiting hours, pain management, procedures, bathroom and other care routines, personal items, smoking policy, room service/diet, and visiting hours. Information on how to activate the Rapid Response Team has been discussed. Patient/Family are encouraged to report perceived risks to care and to ask questions if they do not understand what they are told or what they should do.
[2023-04-17] MEDS: SENNA/DOCUSATE SODIUM TABLET 2 TAB PO (16:53)
[2023-04-17] MEDS: CHOLECALCIFEROL 1,000 UNITS TABLET 2000 UNITS PO (16:56)
[2023-04-17] MEDS: ASPIRIN 325 MG ENTERIC TABLET PO ×2 (16:57→20:47)
[2023-04-17] MEDS: CELECOXIB 200 MG CAPSULE PO (16:58)
[2023-04-17] MEDS: LOSARTAN POTASSIUM 50 MG TABLET PO (16:58)
[2023-04-17] MEDS: PSYLLIUM POWDER PACKET 1 PACKET PO (17:00)
[2023-04-17] MEDS: FAMOTIDINE 20 MG TABLET PO ×2 (17:04→20:47)
[2023-04-18 01:52] VITALS: BP 127/67; PULSE 63; RESP 18; TEMP 37; O2SAT 99
[2023-04-18] MEDS: oxyCODONE/ACETAMINOPHEN (*CRX) 5-325 MG TABLET 1 TABLET PO (02:37)
[2023-04-18 05:52] VITALS: BP 131/55; PULSE 72; RESP 18; TEMP 36.4; O2SAT 96
[2023-04-18 06:40] LABS: Basophils Percent Auto 0.4 % (0.2-1.2); Eosinophils Absolute Auto 0.1 K/mm3 (0-0.3); Eosinophils Percent Auto 0.7 % (0-4.4); Hematocrit 32.7 % (37.0-47.0); Hemoglobin 10.3 g/dL (12.0-15.0); Immature Granulocyte Absolute 0.03 K/mm3 (0.00-0.031); Immature Granulocyte Percent A 0.3 % (0-0.5); Lymphocytes Absolute Auto 1.52 K/mm3 (0.9-3.2); Lymphocytes Percent Auto 14.8 % (18.3-44.2); Mean Corpuscular HGB Conc 31.5 g/dl (32-36); Mean Corpuscular Hemoglobin 28.6 pg (26-34); Mean Corpuscular Volume 90.8 fl (80-100); Mean Platelet Volume 10.4 fl (7.4-10.4); Monocytes Absolute Auto 1.1 K/mm3 (0.1-0.6); Monocytes Percent Auto 10.3 % (2.6-8.5); Neutrophils Absolute Auto 7.5 K/mm3 (1.3-6.7); Neutrophils Percent Auto 73.5 % (45.5-73.1); Platelet Count Result 187 k/mm3 (150-375); Red Cell Distribution Width 13.8 % (11.5-14.5); White Blood Count 10.2 K/mm3 (4.5-10.0)
[2023-04-18 07:18] LABS: Anion Gap 5 mmol/L (8-16); Blood Urea Nitrogen 12 mg/dL (7-17); Calcium 8.9 mg/dL (8.4-10.2); Carbon Dioxide 29 mmol/L (22-30); Chloride 98 mmol/L (98-107); Estimated CRCL calculation 76 ml/min; Estimated Glomerular Filt Rate > 60; Glucose 96 mg/dL (65-110); Potassium 3.7 mmol/L (3.4-5.0); Sodium 132 mmol/L (137-145)
--- NOTE | 2023-04-18 08:01 | WPDANESPN ---
Anes - Prog Note Post-Op Date/Time: 04/18/23 08:01 Cardiovascular status: normal Respiratory status: normal Airway patency: baseline Mental status: baseline Post-Op hydration status: normal Vital Signs: Last Vital Signs Temp 36.4 C L 04/18/23 05:52 Pulse 72 04/18/23 05:52 Resp 18 04/18/23 05:52 BP 131/55 L 04/18/23 05:52 Pulse Ox 96 04/18/23 05:52 O2 Del Method Room Air 04/17/23 14:35 O2 Flow Rate 8 04/17/23 10:50 Pain Score (VAS): 0 I/O: Intake & Output 04/17/23 04/18/23 04/18/23 23:59 07:59 15:59 Intake Total 350 50 Balance 350 50 Laboratory Tests 04/18/23 06:13 04/18/23 06:13 04/17/23 04/18/23 06:55 06:13 WBC 10.2 H RBC 3.60 L Hgb 10.3 L Hct 32.7 L MCV 90.8 MCH 28.6 MCHC 31.5 L RDW 13.8 Plt Count 187 MPV 10.4 Immature Gran % (Auto) 0.3 Neut % (Auto) 73.5 H Lymph % (Auto) 14.8 L [place] % (Auto) 10.3 H Eos % (Auto) 0.7 Baso % (Auto) 0.4 Lymph # (Auto) 1.52 [place] # (Auto) 1.1 H Eos # (Auto) 0.1 Baso # (Auto) 0.0 Abs Immat Gran (auto) 0.03 Absolute Neuts (auto) 7.5 H Absolute Nucleated RBC 0.0 Nucleated RBC % 0.0 Sodium 132 L Potassium 3.7 Chloride 98 Carbon Dioxide 29 Anion Gap 5 L BUN 12 D Creatinine 0.60 L Estim Creat Clear Calc 76 Estimated GFR > 60 Glucose 96 Calcium 8.9 Blood Type O Positive Antibody Screen Negative Post-procedural complaints: none Patient Feedback: Patient satisfied with anesthetic care.
[2023-04-18] MEDS: FAMOTIDINE 20 MG TABLET PO (08:46)
[2023-04-18] MEDS: CHOLECALCIFEROL 1,000 UNITS TABLET 2000 UNITS PO (08:46)
[2023-04-18] MEDS: LOSARTAN POTASSIUM 50 MG TABLET PO (08:46)
[2023-04-18] MEDS: ESCITALOPRAM OXALATE 10 MG TABLET PO (08:46)
[2023-04-18] MEDS: polyethylene glycoL 3350 17 GM POWD.PACK PO (08:47)
[2023-04-18] MEDS: CELECOXIB 200 MG CAPSULE PO (08:47)
[2023-04-18] MEDS: oxyCODONE/ACETAMINOPHEN (*CRX) 5-325 MG TABLET 2 TABLET PO (08:47)
[2023-04-18] MEDS: SENNA/DOCUSATE SODIUM TABLET 2 TAB PO (08:47)
[2023-04-18] MEDS: ASPIRIN 325 MG ENTERIC TABLET PO (08:47)
[2023-04-18] MEDS: PSYLLIUM POWDER PACKET 1 PACKET PO (08:53)
[2023-04-18] MEDS: ceFAZolin 2 GM/D5W 50 ML 2 GM/50 ML BAG IVPB (08:53)
[2023-04-18 09:52] VITALS: BP 103/60; PULSE 79; RESP 14; TEMP 36.4; O2SAT 94
--- NOTE | 2023-04-18 10:38 | PM.PNORT ---
Progress Note: A&P Assessment and Plan (1) Right knee DJD: Qualifiers: Osteoarthritis type: primary Qualified Code(s): M17.11 - Unilateral primary osteoarthritis, right knee Code(s): M17.11 - Unilateral primary osteoarthritis, right knee Status: Acute Assessment and Plan: POD 1 DOING WELL. SHE HAS GOOD PROGRESS WITH PT AND PAIN IS CONTROLLED. RECOMMEND DC HOME WITH HOME PT AND NURSING. SHE WILL F/U IN 3 WEEKS. Subjective Subjective Date/Time Seen: 04/18/23 10:38 Interval history: POD 1 DOING WELL, NO CALF PAIN, GOOD PROGRESS WITH PT Exam Extrem: Other: VSS AFEBRILE DRESSING DRY NV INTACT NEG HOMANS SIGN CALF AND THIGH NON TENDER Objective Data Vital Signs Vital Signs: Vital Signs - 24 hr 04/17/23 10:50 04/17/23 11:05 04/17/23 11:20 Temperature Pulse Rate 97 95 93 Respiratory Rate 12 16 18 Blood Pressure 174/81 H 159/82 H 156/83 H Pulse Oximetry 100 96 94 Oxygen Delivery Trach Collar Room Air Room Air Oxygen Flow Rate 8 04/17/23 11:35 04/17/23 11:50 04/17/23 12:05 Temperature 36.7 C Pulse Rate 89 71 82 Respiratory Rate 16 12 16 Blood Pressure 148/69 H 149/74 H 150/85 H Pulse Oximetry 96 94 96 Oxygen Delivery Room Air Room Air Room Air Oxygen Flow Rate 04/17/23 12:35 04/17/23 12:50 04/17/23 14:35 Temperature 36.8 C 36.3 C L Pulse Rate 71 84 Respiratory Rate 12 14 Blood Pressure 159/84 H 169/86 H Pulse Oximetry 99 95 Oxygen Delivery Room Air Oxygen Flow Rate 04/17/23 21:52 04/18/23 01:52 04/18/23 05:52 Temperature 36.3 C L 37.0 C 36.4 C L Pulse Rate 79 63 72 Respiratory Rate 16 18 18 Blood Pressure 124/53 L 127/67 131/55 L Pulse Oximetry 93 99 96 Oxygen Delivery Oxygen Flow Rate 04/18/23 09:52 Temperature 36.4 C Pulse Rate 79 Respiratory Rate 14 Blood Pressure 103/60 Pulse Oximetry 94 Oxygen Delivery Oxygen Flow Rate Intake/Output Intake/Output: Intake & Output 04/15/23 04/16/23 04/17/23 04/18/23 23:59 23:59 23:59 23:59 Intake Total 500 50 Balance 500 50 Meds/Results Medications: Active Medications Generic Name Dose Route Start Last Admin Trade Name Freq PRN Reason Stop Dose Admin Acetaminophen 1,000 mg 04/17/23 12:07 Acetaminophen 500 Mg Tablet PO Q6H PRN Pain Rated 1-3 Aspirin 325 mg 04/17/23 12:07 04/18/23 08:47 Aspirin 325 Mg Enteric Tablet PO 325 mg Q12HR LAURA Administration Celecoxib 200 mg 04/17/23 12:07 04/18/23 08:47 Celecoxib 200 Mg Capsule PO 200 mg BIDWM LAURA Administration Diazepam 5 mg 04/17/23 12:07 Diazepam (*Crx) 5 Mg Tablet PO Q8H PRN Spasms Diphenhydramine HCl 25 mg 04/17/23 12:07 Diphenhydramine Hcl Inj 50 Mg/Ml Vial IV PUSH Q6H PRN Itching Escitalopram Oxalate 5 mg 04/19/23 09:00 Escitalopram Oxalate 5 Mg Tablet PO Q48H LAURA Escitalopram Oxalate 10 mg 04/18/23 09:00 04/18/23 08:46 Escitalopram Oxalate 10 Mg Tablet PO 10 mg Q48H LAURA Administration Famotidine 20 mg 04/17/23 12:07 04/18/23 08:46 Famotidine 20 Mg Tablet PO 20 mg Q12HR LAURA Administration Losartan Potassium 50 mg 04/17/23 12:07 04/18/23 08:46 Losartan Potassium 50 Mg Tablet PO 50 mg BID LAURA Administration Naloxone HCl 0.1 mg 04/17/23 12:07 Naloxone Hcl 0.4 Mg/Ml Vial IV PUSH Q2M PRN Opiate Reversal Ondansetron HCl 4 mg 04/17/23 12:07 04/17/23 12:40 Ondansetron Inj 4 Mg/2 Ml Vial IV PUSH 4 mg Q4H PRN Administration Nausea And Vomiting Oxycodone/Acetaminophen 1 tablet 04/17/23 12:07 04/18/23 02:37 Oxycodone/Acetaminophen (*Crx) 5-325 Mg Tablet PO 1 tablet Q4H PRN Administration Pain Rated 4-6 Oxycodone/Acetaminophen 2 tablet 04/17/23 12:07 04/18/23 08:47 Oxycodone/Acetaminophen (*Crx) 5-325 Mg Tablet PO 2 tablet Q6H PRN Administration Pain Rated 7-10 Polyethylene Glycol 17 gm 04/17/23 12:07 04/18/23 08:47 Polyeth
--- NOTE | 2023-04-18 10:43 | PM.DS ---
DS: Admitting Diagnosis Discharge Date 04/18/21 Admitting Diagnosis RIGHT KNEE DJD DS: Discharge Diagnosis Discharge Diagnosis (1) Right knee DJD: Qualifiers: Osteoarthritis type: primary Qualified Code(s): M17.11 - Unilateral primary osteoarthritis, right knee Code(s): M17.11 - Unilateral primary osteoarthritis, right knee Status: Acute DS: Summary Hospital Course Reason for hospitalization: RIGHT TKA Hospital Course: PATIENT WAS ADMITTED S/P TOTAL KNEE ARTHROPLASTY FOR POSTOPERATIVE MEDICAL MANAGEMENT, PAIN CONTROL AND MOBILIZATION WITH PHYSICAL AND OCCUPATIONAL THERAPY. THE PATIENT PROGRESSED WELL WITH PT/OT. LABS AND VITALS REMAINED STABLE AND PAIN WELL CONTROLLED. THE PATIENT HAS BEEN CLEARED TO BE DISCHARGED HOME. FOLLOW UP APPOINTMENT SCHEDULED. DISCHARGE INSTRUCTIONS DISCUSSED AT LENGTH WITH THE PATIENT. MEDICATIONS REVIEWED. Status at Discharge Cognitive/behavioral status at discharge: STABLE Time Spent with Patient Time attestation: Total time spent providing and/or coordinating discharge services: DS: Data Data Completed and Pending Labs on day of discharge: Labs from last 24 hours 04/18/23 06:13 WBC 10.2 H RBC 3.60 L Hgb 10.3 L Hct 32.7 L MCV 90.8 MCH 28.6 MCHC 31.5 L RDW 13.8 Plt Count 187 MPV 10.4 Immature Gran % (Auto) 0.3 Neut % (Auto) 73.5 H Lymph % (Auto) 14.8 L [place] % (Auto) 10.3 H Eos % (Auto) 0.7 Baso % (Auto) 0.4 Lymph # (Auto) 1.52 [place] # (Auto) 1.1 H Eos # (Auto) 0.1 Baso # (Auto) 0.0 Abs Immat Gran (auto) 0.03 Absolute Neuts (auto) 7.5 H Absolute Nucleated RBC 0.0 Nucleated RBC % 0.0 Sodium 132 L Potassium 3.7 Chloride 98 Carbon Dioxide 29 Anion Gap 5 L BUN 12 D Creatinine 0.60 L Estim Creat Clear Calc 76 Estimated GFR > 60 Glucose 96 Calcium 8.9 Procedures/Treatments: right tka Discharge Plan Discharge Patient Disposition: Home, Self-Care Discharge Instructions: RUSSELL ELENA M.D. [facility] [address] [place] [address] POST OPERATIVE DISCHARGE INSTRUCTIONS FOLLOWING TOTAL KNEE REPLACEMENT SURGERY ? Your dressing will be changed prior to your discharge. You will be sent home with one additional dressing to be changed on post op day 7 by the home health RN. Your raon will be removed on the 14th day after surgery and steri-strips will be placed. Please practice good hand hygiene and do not touch your incision in order to prevent infection. ? You may shower with your dressing but do not submerge in a bath tub. ? Do not drive or operate machinery until you are released by Dr. Elena. ? Do not walk without a walker for any reason until you are released by Dr. Elena. ? Continue to use your ice machine. Please use a towel or pillow case to protect your skin before applying your ice machine. ? Do NOT place a pillow under your knee. You may use a pillow from the calf down if needed. This will prevent a flexion contracture postoperatively. ? You may begin use of your CPM machine at home if you have been given one pre-operatively. DO NOT USE WHILE YOU ARE SLEEPING. ? Your first post op appointment was sent to you via mail preoperatively. If you have any questions or are unable to make your appointment, please contact our office for scheduling questions. ? Your medications have been sent to your pharmacy. You have been sent home with pain medication. We have also sent you with a stool softener as narcotics can cause constipation. Please keep this in mind during your postoperative recovery. If you are not experiencing regular bowel movements, please contact our office for further instruction. ? Please contact our office with any questions/concerns regarding your knee at [phone]. Stand Alone Forms: General Discharge Instructions Follow-up/Referrals: Russell Elena MD [Physician] - 3 Weeks Dischar
--- NOTE | 2023-04-18 11:42 | PM.DS ---
DS: Admitting Diagnosis Discharge Date 04/13/23 Admitting Diagnosis r knee djd DS: Summary Hospital Course Hospital Course: PATIENT WAS ADMITTED S/P TOTAL KNEE ARTHROPLASTY FOR POSTOPERATIVE MEDICAL MANAGEMENT, PAIN CONTROL AND MOBILIZATION WITH PHYSICAL AND OCCUPATIONAL THERAPY. THE PATIENT PROGRESSED WELL WITH PT/OT. LABS AND VITALS REMAINED STABLE AND PAIN WELL CONTROLLED. THE PATIENT HAS BEEN CLEARED TO BE DISCHARGED HOME. FOLLOW UP APPOINTMENT SCHEDULED. DISCHARGE INSTRUCTIONS DISCUSSED AT LENGTH WITH THE PATIENT. MEDICATIONS REVIEWED. Time Spent with Patient Time attestation: Total time spent providing and/or coordinating discharge services: DS: Data Data Completed and Pending Labs on day of discharge: Labs from last 24 hours 04/18/23 06:13 WBC 10.2 H RBC 3.60 L Hgb 10.3 L Hct 32.7 L MCV 90.8 MCH 28.6 MCHC 31.5 L RDW 13.8 Plt Count 187 MPV 10.4 Immature Gran % (Auto) 0.3 Neut % (Auto) 73.5 H Lymph % (Auto) 14.8 L [place] % (Auto) 10.3 H Eos % (Auto) 0.7 Baso % (Auto) 0.4 Lymph # (Auto) 1.52 [place] # (Auto) 1.1 H Eos # (Auto) 0.1 Baso # (Auto) 0.0 Abs Immat Gran (auto) 0.03 Absolute Neuts (auto) 7.5 H Absolute Nucleated RBC 0.0 Nucleated RBC % 0.0 Sodium 132 L Potassium 3.7 Chloride 98 Carbon Dioxide 29 Anion Gap 5 L BUN 12 D Creatinine 0.60 L Estim Creat Clear Calc 76 Estimated GFR > 60 Glucose 96 Calcium 8.9 Discharge Plan Discharge Patient Disposition: Home Health Service Discharge Instructions: RUSSELL ELENA M.D. [facility] [address] [address] [address] [place] [address] POST OPERATIVE DISCHARGE INSTRUCTIONS FOLLOWING TOTAL KNEE REPLACEMENT SURGERY ? Your dressing will be changed prior to your discharge. You will be sent home with one additional dressing to be changed on post op day 7 by the home health RN. Your aron will be removed on the 14th day after surgery and steri-strips will be placed. Please practice good hand hygiene and do not touch your incision in order to prevent infection. ? You may shower with your dressing but do not submerge in a bath tub. ? Do not drive or operate machinery until you are released by Dr. Elena. ? Do not walk without a walker for any reason until you are released by Dr. Elena. ? Continue to use your ice machine. Please use a towel or pillow case to protect your skin before applying your ice machine. ? Do NOT place a pillow under your knee. You may use a pillow from the calf down if needed. This will prevent a flexion contracture postoperatively. ? You may begin use of your CPM machine at home if you have been given one pre-operatively. DO NOT USE WHILE YOU ARE SLEEPING. ? Your first post op appointment was sent to you via mail preoperatively. If you have any questions or are unable to make your appointment, please contact our office for scheduling questions. ? Your medications have been sent to your pharmacy. You have been sent home with pain medication. We have also sent you with a stool softener as narcotics can cause constipation. Please keep this in mind during your postoperative recovery. If you are not experiencing regular bowel movements, please contact our office for further instruction. ? Please contact our office with any questions/concerns regarding your knee at [phone]. Care Coordination: Patient to have [facility] for PT/OT eval and treat, and group home. They can be reached at [phone] if you have any questions, and they will contact you to schedule their first visit. Patient Instructions: Antibiotic Form Stand Alone Forms: General Discharge Information Follow-up/Referrals: Russell Elena MD [Physician] - 3 Weeks Discharge Medications: New oxycodone-acetaminophen [Percocet] 5-325 mg tablet 1 tablet PO Q8H PRN (Reason: pain) Qty: 30 0RF Continued fluticasone propionate 50 mcg/actua
== END 2023-04-18 12:55 | disposition home health service (06) ==
LOC: ANHSURGERY 06:10 → ANH3MEDSUR 12:31
PROVIDERS: PCP Internal Medicine; Visit Provider Orthopaedic Surgery
PROC: (CPT 27447; principal; 2023-04-17 07:30)
DX: M17.11 Unilateral primary osteoarthritis, right knee (principal); G89.18 Other acute postprocedural pain; I10 Essential (primary) hypertension; I34.1 Nonrheumatic mitral (valve) prolapse; F41.9 Anxiety disorder, unspecified; Z87.891 Personal history of nicotine dependence
CPT/HCPCS: 27447; 64447; 36415; 73560; 80048; 85025; 86850; 86900; 86901; 97110; 97116; 97161; 97165; 97530; 97535; A9270; C1713; C1776; J0171; J0690; J1100; J1170; J1885; J2250; J2270; J2405; J2795; J3010; J7120

== ENCOUNTER 2023-12-31 13:52 | Outpatient (CLI) | payer MEDICARE, BC, SELFPAY ==
--- NOTE | ~2023-12-31 | DEXA_ITS ---
Bone Density Report Name: SAMMIE HUNTLEY Age: 73 Sex: Female Ethnicity: White Date of : 1950 Indication: postmenopausal; screening for osteoporosis; Referring Provider: , GEOVANY Farooq Study: Bone densitometry was performed. Exam Date: December 31, 2023 Accession number: [id number] Bone Density: Region BMD T-score Z-score Classification AP Spine(L1, L2, L3) 0.977 -0.4 1.9 Normal Femoral Neck (Left) 0.671 -1.6 0.4 Osteopenia Total Hip (Left) 0.816 -1.0 0.7 Normal Femoral Neck (Right) 0.742 -1.0 1.0 Normal Total Hip (Right) 0.795 -1.2 0.5 Osteopenia Femoral Neck Mean 0.707 -1.3 0.7 Osteopenia Total Hip Mean 0.805 -1.1 0.6 Osteopenia World Health Organization criteria for BMD impression classify patients as: Normal (T-score at or above -1.0), Osteopenia (T-score between -1.0 and -2.5), or Osteoporosis (T-score at or below -2.5). 10-year Fracture Risk(1): Major Osteoporotic Fracture 11% Hip Fracture 2.2% Reported Risk Factors: [place] (), Neck BMD=0.671, BMI=24.9 (1) FRAX(R) Version 3.08. Fracture probability calculated for an untreated patient. Fracture probability may be lower if the patient has received treatment. Clinical Information Provided by Patient: Has used the following medications: Vitamin D, Calcium Patient maximum height was 59.5 Menopause Age: 43 Drinks caffeinated beverages Onset of menses at age 10 Impression: The patient has low bone mass, based on the Left Femoral Neck T-score. Discussion: BONE DENSITY IS LOW AT ONE OR MORE SKELETAL SITES. This patient's lowest T-score is low at one or more skeletal sites. It meets the World Health Organization's (WHO) criteria for ?low bone mass? (T-score between -1.0 and -2.5). The patient's 10-year risk of fracture as calculated by FRAX is less than the threshold where pharmacological therapy is recommended by the National Osteoporosis Foundation (NOF). However, all treatment decisions require clinical judgment and consideration of individual patient factors, including patient preferences, comorbidities, previous drug use, risk factors not captured in the FRAX model (e.g., frailty, falls, vitamin D deficiency, increased bone turnover, interval significant decline in bone density) and possible under or overestimation of fracture risk by FRAX. The patient should follow a healthful lifestyle (good nutrition with adequate calcium and vitamin D, and appropriate weight-bearing exercise). Follow-Up: Consider repeating this study in 2 to 3 years to reassess this patient's status, or sooner if there is some new clinical indication. Reported by: PAUL on 12/31/2023 2:14:00 PM. Reviewed, dictated and finalized at location [facility]
== END 2023-12-31 13:53 | disposition home or self-care (01) ==
LOC: CHSIMG 13:54
PROVIDERS: PCP Internal Medicine; Visit Provider Internal Medicine
DX: Z78.0 Asymptomatic menopausal state (principal); M85.89 Other specified disorders of bone density and structure, multiple sites
CPT/HCPCS: 77080

== ENCOUNTER 2024-04-23 09:40 | Outpatient (CLI) | payer MEDICARE, BC, SELFPAY ==
--- NOTE | ~2024-04-23 | MM_ITS ---
EXAMINATION: MM screening amairani BI w patrick HISTORY: Screening TECHNIQUE: Craniocaudal and mediolateral oblique 3-D tomosynthesis images were obtained and synthetic 2-D images were generated. CAD analysis was submitted and interpreted. COMPARISON: Comparison to multiple prior studies sequentially, with oldest reviewed study dated 02/10. BREAST PARENCHYMAL COMPOSITION: Not dense: There are scattered areas of fibroglandular density. FINDINGS: There is no evidence of suspicious mass, calcification, or architectural distortion to sugg est malignancy in either breast. There has been no suspicious interval change. IMPRESSION: 1. No mammographic evidence of malignancy. 2. Recommend routine screening mammography in one year. BI-RADS Category 1: Negative Reviewed, dictated and finalized at location B. [employer] EQUIPMENT OPERATOR
--- OUTSIDE RECORDS SUMMARY | 2024-04-23 10:47 | XMS_ITS | Clinical Summary ---
[facility] Organization [facility] Address [address] Attn: Epic Prelude ADT DEDRICK CARDOZA [id number] Care Team Providers Care Clinical Education Specialist Name Role Phone Unavailable Primary Care Provider Unavailabl e Immunizations Immunization Administration Dates Next Due INFLUENZA VACCINE HIGH DOSE QUADRIVALENT 65 YR U P PF IM 11/30/2021 INFLUENZA VACCINE HIGH DOSE TRIVALENT SPLIT VIRUS, (65 YR UP), 0.5ML (PF), IM 11/27/2023 Social History Tobacco Use Types Packs/Day Years Used Date Smoking Tobacco: Never Assessed Comments Unknown Sex and Gender Information Value Date Recorded Sex Assigned at Not on file Legal Sex Female 3:27 PM CDT Gender Identity Not on file Sexual Orientation Not on file Plan of Treatment Health Maintenance Due Date Last Done Comments DTAP/TDAP/TD VACCINES (1 - Tdap) 1969 BREAST CANCER SCREENING 1990 COLORECTAL SCREENING 08/26/1995 Colorectal Cancer Screening 08/26/1995 FIT-DNA Q 3 years 08/26/1995 FIT/FOBT Q 1 year 08/26/1995 Flex Sig/CT Colonography Q 5 years 08/26/1995 PNEUMOCOCCAL VACCINE 65+ YEA RS (1 of 1 - PCV) 2000 ZOSTER VACCINE (1 of 2) 2000 OSTEOPOROSIS SCREENING 08/26/2015 RSV VACCINE (60+ or ) (1 - 1-dose 75+ series) 2025 INFLUENZA VACCINE Completed 11/27/2023, 11/30/2021 Insurance RX [facility] Medicare Part D
--- OUTSIDE RECORDS SUMMARY | 2024-04-23 10:47 | XMS_ITS | Clinical Summary ---
Author Organization [facility] [address] [place] [address] Care Team Providers Care Assignment Officer Name Role Phone Joao Hinojosa MD Primary Care Provider [phone] Allergies No known active allergies Medications ALPRAZolam (XANAX) 0.5 mg tablet Take 0.5 mg by mouth daily as needed 01/15/2022 Active acetaminophen (TYLENOL) 500 mg tablet Take by mouth every 4 hours 08/31/2021 Active escitalopram (LEXAPRO) 5 mg tablet 01/15/2022 Active fluticasone propionate (FLONASE) 50 mcg/actuation nasal spray 10/25/2021 Active losartan (COZAAR) 50 mg tablet 01/15/2022 Active meloxicam (MOBIC) 7.5 mg tablet Take 1 tablet by mouth daily 02/07/2021 Active Active Problems No known active problems Surgical History Surgery Date Site/Laterality Comments REPLACEMENT TOTAL KNEE 03/12/2019 - 03/11/2020 Left FOOT SURGERY 03/12/2017 - 03/11/2018 Left TONSILLECTOMY 03/12/1990 - 03/11/1991 CHOLECYSTECTOMY 03/12/1993 - 03/11/1994 Medical History Medical History Date Comments Allergic rhinitis Anxiety Hypertension Family History Medical History Relation Name Comments Cancer Father Osteoporosis Mother Relation Name Status Comments Father Mother Social History Tobacco Use Types Packs/Day Years Used Date Smoking Tobacco: Former Cigarettes Smokeless Tobacco: Never Tobacco Cessation:Counseling Given: Not Answered Comments Unknown Sex and Gender Information Value Date Recorded Sex Assigned at Not on file Legal Sex Female 12:51 AM POSITION CLASSIFICATION SPECIALIST Gender Identity Not on file Sexual Orientation Not on file Obstetrics History Last Filed Vital Signs Vital Sign Reading Time Taken Comments Blood Pressure - - Pulse - - Temperature - - Respiratory Rate 18 02/01/2022 10:07 AM POSITION CLASSIFICATION SPECIALIST Oxygen Saturation - - Inhaled Oxygen Concentration - - Weight 74.8 kg (165 lb) 02/01/2022 10:07 AM POSITION CLASSIFICATION SPECIALIST Height 175.3 cm (5' 9 ) 02/01/2022 10:07 AM POSITION CLASSIFICATION SPECIALIST Body Mass Index 24.37 02/01/2022 10:07 AM POSITION CLASSIFICATION SPECIALIST Plan of Treatment Health Maintenance Due Date Last Done Comments Breast Cancer Screening-Mammogram 1950 Colon Cancer Screening-Colonoscopy 1950 Depression Screening 1950 Fall Risk Assessment 1950 Hepatitis C Screening 1950 Osteoporosis Screening-Bone Density Scan 1950 Hepatitis B Screening 1968 Well Visit 65+ 08/26/2015 Covid-19 Vaccine (2023-2 5 season) 2023 01/02/2022, 06/13/2021, 01/23/2021, Additional history exists Influenza Vaccine (#1) 2023 , 11/17/2019, 12/23/2018, Additional history exists DTaP/Tdap/Td Vaccine (2 - Td or Tdap) 06/25/2028 06/25/2018 Pneumococcal vaccine 65+ Completed 06/18/2017, 10/2015 Zoster Vaccine Completed 07/20/2018, 05/20/2018 [place] [address] [facility] Care Teams Assignment Officer Relationship Specialty Start Date End Date Joao Hinojosa MD [address] [place] [address] PCP - General Internal Medicine 01/25/22
--- OUTSIDE RECORDS SUMMARY | 2024-04-23 10:47 | XMS_ITS | Patient Health Summary ---
Author Organization [facility] Address [address] [place] [address] Care Team Providers Care Chemical Research Engineer Name Role Phone Joao Hinojosa MD Primary Care Provider [phone] Note from [facility],non-owned Affiliates and Associated Physician Practices is amultiple site organization consisting of ambulatory clinics and hospital sitesin [place], [place], [place] and [place]. This disclosure is being madepursuant to the Care Everywhere program and may not contain all information available regarding this patient. Last updated 17.[facility] Allergies No known active allergies Immunizations * INFLUENZA VACCINE, HIGH-DOSE, QUADR. (FLUZONE HIGH-DOSE QUADRIVALENT; 65Y+), 0.7 ML (HD-IIV4)(Given 01/17/2017) Social History Tobacco Use Types Packs/Day Years Used Date Smoking Tobacco: Never Assessed Sex and Gender Information Value Date Recorded Sex Assigned at Not on file Gender Identity Not on file Sexual Orientation Not on file Care Teams Chemical Research Engineer Relationship Specialty Start Date End Date Joao Hinojosa MD PCP - General Internal Medicine 01/17/17
--- OUTSIDE RECORDS SUMMARY | 2024-04-23 10:47 | XMS_ITS | Referral Summary ---
Author Organization [facility] Address [address] [place] [address] Care Team Providers Care Station Inspector Name Role Phone Joao Hinojosa MD Primary Care Provider [phone] Source Comments [facility],non-owned Affiliates and Associated Physician Practices is amultiple site organization consisting of ambulatory clinics and hospital sitesin [place], [place], [place] and [place]. This disclosure is being madepursuant to the Care Everywhere program and may not contain all information available regarding this patient. Last updated 17.[facility] [employer] Allergies No known active allergies Immunizations Name Administration Dates Next Due INFLUENZA VACCINE, HIGH-DOSE , QUADR. (FLUZONE HIGH-DOSE QUADRIVALENT; 65Y+), 0.7 ML (HD-IIV4) 01/17/2017 Social History Tobacco Use Types Packs/Day Years Used Date Smoking Tobacco: Never Assessed Sex and Gender Information Value Date Recorded Sex Assigned at Not on file Gender Identity Not on file Sexual Orientation Not on file Plan of Treatment Not on file Care Teams Station Inspector Relationship Specialty Start Date End Date Joao Hinojosa MD PCP - General Internal Medicine 01/17/17
--- OUTSIDE RECORDS SUMMARY | 2024-04-23 10:47 | XMS_ITS | Continuity of Care Document ---
Author Organization [facility] Address [address] [place] [address] Phone Care Team Providers Care Radio Station Audio Engineer Name Role Phone Sam Gamez MD Unavailable Unavailable Allergies, Adverse Reactions, Alerts Substance Reaction Status Criticality No Known Allergies Active No Inform ation Medications Medication Instructions Dosage Effective Dates (start - stop) Status Comments meloxicam 7.5 mg tablet take 1 tablet by oral route every day 7.5 MG - Active amlodipine 5 mg tablet take 1 tablet by oral route every day 5 MG - Active fluticasone propionate 50 mcg/actuation nasal spray,suspension USE 2 SPRAYS IN EACH NOSTRIL DAILY - Active alprazolam 0.5 mg tablet take 1 tablet by oral route daily as needed for anxiety - Active Faxed to [facility] [phone] Lexapro 5 mg tablet TAKE 1 TABLET ALTERNATING WITH 2 TABLETS EVERY OTHER DAY - Active losartan 50 mg tablet TAKE 1 TABLET TWICE A DAY - Active Metamucil 3.4 gram/5.4 gram oral powder mix 1 tbsp in liquid once daily - Active acetaminophen 500 mg tablet take 2 tablet by oral route every 4 - 6 hours as needed not to exceed 8 tablets per 24hrs 1000 MG - Active Vitamin D3 2,000 unit tablet take 1 tablet by mouth once daily - Active lutein 25 mg-zeaxanthin 5 mg capsule take 1 capsule by mouth once daily - Active Aller-Michael 10 mg tablet take 1 tablet by mouth once daily - Active cyclobenzaprine 10 mg tablet take 1 tablet by oral route 2 times every day 10 MG - Active Procedures Procedure Date BASIC METABOLIC PANEL(BMP) Pt inelig neg scrn depres OFFICE [id number] BODY MASS INDEX DOCD SYST BP >= 140 MM HG6 IT DIAST BP < 80 MM HG ROUTINE VENIPUNCTURE IL Pt inelig neg scrn depres PPPS, subseq visit BODY MASS INDEX DOCD SYST BP >= 140 MM HG6 IT DIAST BP < 80 MM HG CBC, INC PLATELETS AND DIFFERENTIAL COMPREHEN METABOLIC PANEL CMP HEMOGLOBIN A1C HGA1C, GLYCO LIPID PANEL ROUTINE VENIPUNCTURE IL Pt inelig neg scrn depres OFFICE [id number] BODY MASS INDEX DOCD SYST BP >= 140 MM HG6 IT DIAST BP 80-89 MM HG BASIC METABOLIC PANEL(BMP) PNEUMOVAX ADM MEDICARE Pneumococcal Conjugate Vaccine (PCV20) J Pt inelig neg scrn depres OFFICE [id number] BODY MASS INDEX DOCD SYST BP >= 140 MM HG6 IT DIAST BP < 80 MM HG ROUTINE VENIPUNCTURE IL Pt inelig neg scrn depres FALL RISK ASSESSMENT DOC'D PRES/ABSN URINE INCON ASSESS PPPS, subseq visit BODY MASS INDEX DOCD SYST BP >= 140 MM HG6 IT DIAST BP < 80 MM HG CBC, INC PLATELETS AND DIFFERENTIAL COMPREHEN METABOLIC PANEL CMP 3 HEMOGLOBIN A1C HGA1C, GLYCO LIPID PANEL ROUTINE VENIPUNCTURE IL Pt inelig neg scrn depres OFFICE [id number] BODY MASS INDEX DOCD SYST BP >= 140 MM HG6 IT DIAST BP 80-89 MM HG BASIC METABOLIC PANEL(BMP) ROUTINE VENIPUNCTURE IL Pt inelig neg scrn depres FALL RISK ASSESSMENT DOC'D PRES/ABSN URINE INCON ASSESS PPPS, subseq visit BODY MASS INDEX DOCD SYST BP LT 130 MM HG DIAST BP < 80 MM HG CBC, INC PLATELETS AND DIFFERENTIAL COMPREHEN METABOLIC PANEL CMP 2 LIPID PANEL ROUTINE VENIPUNCTURE IL HEMOGLOBIN A1C HGA1C, GLYCO Pt inelig neg scrn depres OFFICE [id number] BODY MASS INDEX DOCD SYST BP >= 140 MM HG6 IT DIAST BP 80-89 MM HG BASIC METABOLIC PANEL(BMP) ROUTINE VENIPUNCTURE IL OFFICE [id number] Pt inelig neg scrn depres Pt inelig neg scrn depres FALL RISK ASSESSMENT DOC'D PRES/ABSN URINE INCON ASSESS PPPS, subseq visit BODY MASS INDEX DOCD SYST BP >= 140 MM HG6 IT DIAST BP < 80 MM HG CBC, INC PLATELETS AND DIFFERENTIAL COMPREHEN METABOLIC PANEL CMP LIPID PANEL ROUTINE VENIPUNCTURE IL Pt inelig neg scrn depres OFFICE [id number] BODY MASS INDEX DOCD SYST BP GE 130 - 139MM HG DIAST BP < 80 MM HG BASIC METABOLIC PANEL(BMP) ROUTINE VENIPUNCTURE IL Pt inelig neg scrn depres FALL RISK ASSESSMENT DOC'D PRES/ABSN URINE INCON ASSESS PPPS, subseq visit BODY MASS INDEX DOCD SYST BP GE 130 - 139MM HG DIAST BP < 80 MM HG OFFICE [id number] BODY MASS INDEX DOCD SYST BP GE 130 - 139MM HG DIAST BP < 80 MM HG Pt inelig neg scrn depres Admin influenza virus vac Flu Vac, quad (RIV4), Preservative And A ntibiotic Free IM OFFICE [id number] BODY MASS INDEX DOCD SYST BP GE 130 - 139MM HG DIAST BP < 80 MM HG BASIC METABOLIC PANEL(BMP) ROUTINE VENIPUNCTURE [place] Advance Directives Directive Yes / No Effective Date File Name No Information Encounters Encounter Description Practice Location Reason(s) For Visit Diagnoses Date Provider Providers Copied on Encounter [facility], [address], [place], [place], [address] , [place] tel: [phone] [facility] No Information 5 Vera Vargas. [address] [facility], [address] [address], [place], [place], [address] , [place]. tel: [phone] Referring Provider: Joao Hinojosa, [address] [place], [address] . tel:[phone] OFFICE [id number]-XEJ-AX TAILED [facility], [address], [place], [place], [address] , tel: [phone] [facility] chronic conditon (chief complaint) Essential (primary) hypertensionGene ralized anxiety disorderBody mass index [BMI] 27.0-27.9, adult 5 English Shepherd. [address] [place], [place], [address] , [place]. tel: [phone] Referring Provider: [place], [address] . tel:[phone] [facility] [place], [address], [place], [place], [address] , [place] tel: [phone] [facility] No Information 4 English Shepherd. [address] [place], [address] , [place]. tel: [phone] [facility] [place], [address], [place], [place], [address] , [place] tel: [phone] [facility] [employer] [facility] px (chief complaint)Med icare preventive (chief complaint) Essential (primary) hypertensionGene ralized anxiety disorderEncounte r for general adult medical examination without abnormal findingsAsymptom atic menopausal state 4 English Shepherd. [address] [place], [address] , [place]. tel: [phone] Referring Provider: [place], [address] . tel:[phone] [facility], [address], [place], [place], [address] , [place] tel: [phone] [facility] No Information 4 Vera Vargas. [address], [id number] , . tel: [phone] Referring Provider: [place], [address] . tel:[phone] [facility] [place], [address], [place], [place], [address] , [place] tel: [phone] [facility] Essential hypertensionHype rlipidemia, unspecified hyperlipidemia typeHyperglycemi a 4 English Shepherd. Guilher[address] [place], [address] , [place]. tel: [phone] Referring Provider: [place], [address] . tel:[phone] OFFICE NHFEI-POD-DE PANDED [facility] [employer] [place], [address], [place], [place], [address] , [place] tel: [phone] [facility] lump (chief complaint) Body mass index [BMI] 26.0-26.9, adultLump of skin of back 4 English Shepherd. Guilher[address] [place], [address] , [place]. tel: [phone] Referring Provider: Gu[place], [address] . tel:[phone] [facility] [place], [address], [place], [place], [address] , [place] tel: [phone] [facility] No Information 4 English Shepherd. Guilher[address] [place], [address] , [place]. tel: [phone] [facility], [address], [place], [place], [address] , [place] tel: [phone] [facility] No Information 4 Vera Vargas. [address] [place] [address], [place], [place], [address] , . tel: [phone] Referring Provider: Gu[place], [address] . tel:[phone] OFFICE DWUSQ-IHA-OO TAILED [facility], [address], [place], [place], [address] , [place] tel: [phone] [facility] chr conditions (chief complaint) Generalized anxiety disorderEssentia l hypertensionMedu llary cystic kidneyArthritis 4 English Shepherd. Gu[address] [place], [address] , [place]. tel: [phone] Referring Provider: Joao Hinojosa, [place], [address] . tel:[phone] [facility], [address], [place], [place], [address] , [place] tel: [phone] [facility] Medicare preventive (chief complaint)px (chief complaint) Encounter for general adult medical examination without abnormal findingsMedullar y cystic kidneyEssential hypertensionGene ralized anxiety disorderHyperlip idemia, unspecified hyperlipidemia typeBody mass index [BMI] 26.0-26.9, adult 3 English Shepherd. Guil[address] [place], [address] , [place]. tel: [phone] Referring Provider: Gu[place], [address] . tel:[phone] [facility], [address], [place], [place], [address] , [place] tel: [phone] [facility] No Information 3 Vera Vargas. [address] [facility], [address], [address] , [place]. tel: [phone] Referring Provider: Gu[place], [address] . tel:[phone] [facility], [address], [place], [place], [address] , [place] tel: [phone] [facility] Hyperlipidemia, unspecified hyperlipidemia typeEssential hypertensionHype rglycemia 3 English Shepherd. Gu[address] [place], [address] , . tel: [phone] Referring Provider: [place], [address] . tel:[phone] [facility], [address], [place], [place], [address] , tel: [phone] [facility] Colon cancer screening 3 English Shepherd. Guil[address] [place], [address] , [place]. tel: [phone] OFFICE SRLPN-CZA-UH [facility], [address], [place], [place], [address] , tel: [phone] [facility] chronic conditioonss (chief complaint) Body mass index [BMI] 26.0-26.9, adultBenign hypertensionGene ralized anxiety disorderMedullar y cystic kidney 2 English Shepherd. Guilher[address] [place], [address] , [place]. tel: [phone] Referring Provider: Gu[place], [address] . tel:[phone] [facility], [address], [place], [place], [address] , [place] tel: [phone] [facility] Patient encounter (chief complaint)Px (chief complaint) Encounter for general adult medical examination without abnormal findingsGenerali zed anxiety disorderMedullar y cystic kidneyHyperlipid emia, unspecified hyperlipidemia typeHTNBody mass index [BMI] 26.0-26.9, adultArthritisAs ymptomatic menopausal state 2 English Shepherd. [address] [place], [address] , [place]. tel: [phone] Referring Provider: [place], [address] . tel:[phone] [facility], [address], [place], [place], [address] , tel: [phone] [facility] HTNHyperlipidemi a, unspecified hyperlipidemia typeHyperglycemi a 2 English Shepherd. Gu[address] [place], [address] , [place]. tel: [phone] Referring Provider: Joao Cymro, [address] [place], [address] . tel:[phone] OFFICE AIGCN-ZSN-XU TAILED [facility], [address], [place], [place], [address] , tel: [phone] [facility] Chronic Conditions (chief complaint) Body mass index [BMI] 26.0-26.9, adultOther hyperlipidemiaMe dullary cystic kidneyGeneralize d anxiety disorderEssentia l (primary) hypertension 1 English Shepherd. Gu[address] [place], [address] , [place]. tel: [phone] Referring Provider: [place], [address] . tel:[phone] OFFICE KYFJK-USX-CH PANDED [facility], [address], [place], [place], [address] , tel: [phone] Jacob surgeyr clearance (chief complaint) Arthritis of joint of toeBody mass index (BMI) 26.0-26.9, adult 1 English Shepherd. Guil[address] [place], [address] , [place]. tel: [phone] Referring Provider: Gu[place], [address] . tel:[phone] [facility], [address], [place], [place], [address] , tel: [phone] Jacob px (chief complaint) Body mass index (BMI) 26.0-26.9, adultEncounter for general adult medical examination without abnormal findingsMedullar y sponge kidneyAnxiety and depressionBenign hypertensionAngi omyolipomaHyperl ipidemia, unspecified hyperlipidemia type 1 English John. Vaneg[place], [address] , [place]. tel: [phone] Referring Provider: Gu[place], [address] . tel:[phone] [facility], [address], [place], [place], [address] , tel: [phone] Jacob Benign hypertensionScre ening for lipid disorders 1 English John. [address] [place], [address] , . tel: [phone] Referring Provider: Gu[place], [address] . tel:[phone] [facility] [employer], [address], [place], [place], [address] , tel: [phone] Jacob No Information 1 English Shepherd. Gu[address] [place], [address] , [place]. tel: [phone] OFFICE HAKFD-HHK-BU [facility], [address], [place], [place], [address] , tel: [phone] Jacob chronic conditions (chief complaint) Body mass index (BMI) 25.0-25.9, adultBenign hypertensionAnxi ety and depressionMedull bucky sponge kidney Feb-0 0 English Shepherd. [address] [place], [address] , [place]. tel: [phone] Referring Provider: Gu[place], [address] . tel:[phone] [employer], [address], [place], [place], [address] , tel: [phone] [facility] Telehealth (chief complaint)PX (chief complaint) Body mass index (BMI) 24.0-24.9, adultEncounter for general adult medical examination without abnormal findingsMedullar y sponge kidneyArthritis of kneeAnxiety and depressionBenign hypertensionScre ening for lipid disorders 0 English John. Van[address] [place], [address] , . tel: [phone] Referring Provider: Gu[place], [address] . tel:[phone] OFFICE QCDNG-ZWI-CW [facility], [address], [place], [place], [address] , tel: [phone] [facility] surgical clearance (chief complaint) Benign hypertensionAnxi ety and depressionArthri tis of knee 9 English John. Van[address] [place], [address] , [place]. tel: [phone] Referring Provider: Gu[place], [address] . tel:[phone] OFFICE YWBTD-GBC-JV [facility], [address], [place], [place], [address] , tel: [phone] Jacob 6 month (chief complaint) Body mass index (BMI) 25.0-25.9, adultBenign hypertensionAnxi ety and depressionArthri tis 9 English John. Van[address], [address] , [place]. tel: [phone] Referring Provider: Gu[place], [address] . tel:[phone] [facility], [address], [place], [place], [address] , [place] tel: [phone] Jacob Post-menopausal 9 English Shepherd. Gu[address] [place], [address] , [place]. tel: [phone] [facility], [address], [place], [place], [address] , tel: [phone] [facility] medicare px (chief complaint) Encounter for general adult medical examination without abnormal findingsAnxiety and depressionOsteop eniaBenign hypertensionMedu llary sponge kidneyArthritis 9 English John. Vaneg[place], [address] , [place]. tel: [phone] Referring Provider: Gu[place], [address] . tel:[phone] [facility], [address], [place], [place], [address] , tel: [phone] [facility] Screening for lipid disordersLong term use of drugBenign hypertension Jun- 9 English Shepherd. [address] [place], [address] , [place]. tel: [phone] [facility], [address], [place], [place], [address] , tel: [phone] Jacob Hypertension, unspecified typeMedullary sponge kidneyAnxiety and depressionHyperl ipidemia, unspecified hyperlipidemia typeArthritis 8 Cymro Joao. [address] [place], [address] , [place]. tel: [phone] Referring Provider: Gu[place], [address] . tel:[phone] [facility], [address], [place], [place], [address] , tel: [phone] Jacob Screening for lipid disordersEncount er for general adult medical examination without abnormal findingsHyperten duran, unspecified typeLong term use of drug 8 Cymro Joao. [address] [place], [address] , [place]. tel: [phone] [facility], [address], [place], [place], [address] , [place] tel: [phone] Jacob Encounter for general adult medical examination without abnormal findingsMedullar y sponge kidneyWhite coat syndrome with diagnosis of hypertensionOste openiaAnxiety Jun-0 8 English Shepherd. [address] [place], [address] , [place]. tel: [phone] Referring Provider: Gu[place], [address] . tel:[phone] [facility], [address], [place], [place], [address] , [place] tel: [phone] Jacob White coat syndrome with diagnosis of hypertensionOste openiaMedullary sponge kidneyAnxiety Nov-0 7 English Shepherd. [address] [place], [address] , [place]. tel: [phone] Referring Provider: Gu[place], [address] . tel:[phone] [facility], [address], [place], [place], [address] , [place] tel: [phone] Jacob Essential hypertensionScre ening for lipid disorders Sep-0 7 Cymro John. Vaneg[address] [place], [address] , [place]. tel: [phone] Referring Provider: Gu[place], [address] . tel:[phone] [facility], [address], [place], [place], [address] , [place] tel: [phone] Jacob Acute non-recurrent maxillary sinusitis Apr-0 7 English Shephred. [address] [place], [address] , [place]. tel: [phone] Referring Provider: Gu[place], [address] . tel:[phone] [facility], [address], [place], [place], [address] , [place] tel: [phone] Jacob Encounter for pre-employment health screening examination May- 7 English Ruiz [address] [place], [address] , [place]. tel: [phone] [facility], [address], [place], [place], [address] , [place] tel: [phone] Jacob Essential hypertensionOste openiaRenal structural abnormality May-0 7 English Ruiz Guil[address] [place], [address] , [place]. tel: [phone] Referring Provider: Gu[place], [address] . tel:[phone] [facility], [address], [place], [place], [address] , [place] tel: [phone] Jacob No Information Nov-3 0 6 English John. Vaneg[place], [address] , [place]. tel: [phone] [facility], [address], [place], [place], [address] , [place] tel: [phone] Jacob No Information 6 Óscar Esparza. [address] [address], [place], [address], [place]. tel: [phone] [facility], [address], [place], [place], [address] , [place] tel: [phone] Jacob Encounter for general adult medical examination without abnormal findingsEssentia l hypertensionOste openiaMedullary sponge kidneyEncounter for immunization 6 English Shepherd. [address] [place], [address] , [place]. tel: [phone] Referring Provider: Joao Hinojosa, [address] [place], [address] . tel:[phone] Family History Family Member Type Diagnosis Age At Onset Mother Problem (finding) alzheimer's disease Maternal aunt Problem (finding) breast cancer Father Problem (finding) Alcoholism Sister Problem (finding) hypertension Mother Problem (finding) Hearing deficiency Mother Problem (finding) coronary arterioscleros is Mother Problem (finding) hypertension Mother Problem (finding) osteoporosis Sister Problem (finding) Allergies Father Problem (finding) malignant neoplasm of l ricardo Sister Problem (finding) osteoporosis Immunizations Vaccine Date Status Comments Fluzone Trivalent, preservat na free, split virus, 0.5mL dosage administered Note: [facility] ; Source: Source Unspecified Pneumococcal conjugate PCV20 administered Source: New Immunization Record Pfizer Comirnaty tri-sucrose COVID Vaccine 30 mcg/0.3 mL dose, 12+ years administered [facility]: [facility] ; Source: Source Unspecified Fluzone High-Dose, high dose , preservative free administered Note[facility] [place] ; Source: Source Unspecified Moderna (Bivalent Booster) COVID Vac, 50mgc/0.5 mL, 18+ years administered Note: [facility] ; So urce: Other Registry Fluzone High-Dose, high dose , preservative free administered Note: [facility] ; S ource: Other Registry Moderna (Booster Dose) COVID Vac, 50 mcg/0.5 mL administered Note: [facility] ; So urce: Other Registry Moderna (Booster Dose) COVID Vac, 50 mcg/0.5 mL administered Note: [facility] ; So urce: Other Registry Flublok, quadrivalent, preservative free, 0.5mL dosage administered Note: [facility] ; Source: Public Agency Moderna COVID19 Vaccine, 0.5 mL per dose, 2 doses, administered 28 days apart administered Note: [facility] ; Source: Public Agency Moderna COVID19 Vaccine, 0.5 mL per dose, 2 doses, administered 28 days apart administered Note: [facility] ; Source: Public Agency Fluzone High-Dose, high dose , preservative free administered Note: done at [facility] ; S ource: Source Unspecified Flublok, quadrivalent, preservative free, 0.5mL dosage administered Source: New Immunization Record SHINGRIX (Zoster vaccine recombinant, adjuvanted) administered Source: Source Unspecified Tdap administered Source: New Imm unization Record SHINGRIX (Zoster vaccine recombinant, adjuvanted) administered Source: Source Unspecified Flublok, quadrivalent, preservative free, 0.5mL dosage administered Source: New Immunization Record Pneumococcal polysaccharide PPV23 administered Source: New Immuniza tion Record Pneumococcal conjugate PCV 13 administere d Source: New Immunization Record Influenza, injectable, quadrivalent, preservative free, 3 yrs or older administered Source: New Immuniz ation Record influenza, injectable, quadrivalent, (3 years or older) administered Source: Other Provid er Influenza, high dose seasonal administere d Source: Other Provider influenza, injectable, quadrivalent, (3 years or older) administered Source: Other Provid er influenza, injectable, quadrivalent, (3 years or older) administered Source: Other Provid er Zoster administered Source: Source Unspecified influenza, injectable, quadrivalent, (3 years or older) administered Source: Other Provid er Tdap administered Source: Other Clary nguyen Payers Payer name Insurance type Covered libertarian ID Renan stinson(s) [place] [id number] [place] BL [id number] [place] [id number] [place] [id number] [place] [id number] [place] [id number] [place] [id number] [place] [id number] [place] [id number] [place] [id number] [place] [id number] [place] [id number] [place] [id number] [place] [id number] [place] [id number] [place] [id number] Social History Type Description Quantity Date Captured Comments Sex Female Smoking Status No Information Chief Complaint And Reason For Visit No Information Reason For Referral Reason For Referral No Information Plan Of Treatment Date Type Action Status Goal Dietary manageme nt education, guidance, and counseling completed Goal Dietary manageme nt education, guidance, and counseling completed Goal Dietary manageme nt education, guidance, and counseling completed Goal Dietary manageme nt education, guidance, and counseling completed Goal Dietary manageme nt education, guidance, and counseling completed Goal Dietary manageme nt education, guidance, and counseling completed Goal Dietary manageme nt education, guidance, and counseling completed Goal Dietary manageme nt education, guidance, and counseling completed Goal Dietary manageme nt education, guidance, and counseling completed Goal Dietary manageme nt education, guidance, and counseling completed Goal Dietary manageme nt education, guidance, and counseling completed Referral Referred To: Amrit Aleman MD [address] [facility] [address] [place], [id number] Ordered: Referrals: Gastroenterology. Amrit Aleman MD. Evaluation/diagnostic/treatment - Level 3 ordered Referral Ordered: DEXA of spine and hip ordered Future Order: Lab Order Comprehe nsive Metabolic (CMP) ([id number]), Sent on: Sent Future Order: Lab Order Lipid Pa falguni W/Reflex To Direct LDL ([id number]), Sent on: Sent Future Order: Lab Order CBC AUTO DIFF ([id number]), Sent on: Sent History Of Present Illness Encounter Date Complaint History Of Prese nt Illness chronic conditon htn--decent con trol, no symtomsgad-- doing ok on medback pain-- some disc protrusion px Chronic conditio nshtn-- up and downgad-- controlled on meddiet-- goodexercise-- regularimmunizations--utdscreenings-- utdmood-- doing alrightsleep--okmemory--ok Medicare preventive A Health Ris k Assessment has been performed and reviewed. The patient has not felt depressed and has had interest and pleasure doing things recently. Cognitive Status: (Cognitive status has not changed) on 09/27/2023. The ''Up and Go'' test took less than 30 seconds andthe patient does not need help with activities of daily living. The patient is not at risk for falls. The patient has not fallen in the last year. The fall(s) did not result in injury. Relevant history is positive for alcohol use. Patient is a former tobacco user. lump lump on back---g ot renal us, no pain, very small chr conditions htn-- doing grea t at home, still exercise, up and down stairsmedullary cystic kidney-- bnmp has been stableoa--plan for surgerygad-- doing ok Medicare preventive The patient has not felt depressed and has had interest and pleasure doing things recently. Cognitive Status: (Cognitive status has not changed) on 09/11/2022. The ''Up and Go'' test took less than 30 seconds andthe patient does not need help with activities of daily living. The patient is not at risk for falls. The patient has not fallen in the last year. The fall(s) did not result in injury. Patient denies recent weight gain. Patient denies recent weight loss. Relevant history is positive for alcohol use. Patient is a former tobacco user. px Chronic conditio nsmedullary cystic kidney--=-=kidney function has been stablehtn-- controlle don medgad-- doing okhld-- diet controlleddietexercise-- regulalryimmunizationsscreenings-- got colonoscopy, needs mammogram, utd with dexamoodsleepmemory--ok chronic conditioonss htn-- contr olled at homegad-- doing well on medmsk-- has been stable Px Patient encounter chronic condit ionshtn-- coontrolled on medgad-- doing alrightoa-- more achy allt the timemedullary cystic kidney---kidneys dooing alrighthld-- diet controlleddiet-- healthyexercise-- regularno risk for drug abusescreening--utd with mammogram, needs colonoscopyimmunizations--utdmood-- okmemory-- fine Chronic Conditions *See Chronic Conditions HPI surgeyr clearance toe artrhitis- - plans for surgerybp mildy elevatedno chest pain or sob while exercising 2mph on incline px chronic conditio nshtn- -cp controlledanxiety-- doing alrightangiolyolipoma-- has been stablehld-- diet controlleddiet-- pretty goodexercise-- regularscreening-- needs colonosocpyimmunizations-- got covdi vaccinemood--okmemory-- fine chronic conditions htn-- doinkg reat at home, no symptomsmedullary sponge kidney-- has had no problemsanxiety and depression-- a little worse right now PX chronic conditio nsanxiety-- doing ok on lexaprooa-- sp surgeyr-- sometimes painhtn-- bp good, no symptomsmedullary sponge kidney-- usually gets usdiet-- good overallexercise-- somescreening--utdimmunizations--utdmood-- okmemory--- fine Telehealth This visit was c ompleted via videochat due to the restrictions of the COVID-19 pandemic. All issues as below were discussed and addressed but physical exam was performed by observation only. If it was felt that the patient should be evaluated in clinic then they were directed there. The patient verbally consented to visit. surgical clearance htn-- bp high in office, bc of snow on roads,e xercsising, very worryingknee artritis-- plan for surgery, no chest pain or shortness of breathocd-- stable on lexapro 6 month htn-- bp greatm has white coat htn, no cp, sob, or dizzinessarthrotis-- worseninganxiety with depression-- stable on lexapro medicare px chronic conditio nshtn-- bp great at home, have checked with home machineanxiety/depression--on lexapro and xanaxmedullary sponge-- stable-- sees urolpogyoa--knees, got pt and steroid shots ad gel injectionosteopennia-- needs dexadiet-- healthy diet, low oxalateexercise-- a little bitscreening--utd with mammogram, needs colonoscpy at 70, , needs dexaimmunizations-- got flu and shingrixmood-- ok, stablememory--fine, has part ttime knows year, trump, serials 7 Functional Status Date Functional Assessmen t No Information Instructions Date Instruction Additional Infor mation continue medslow salt Relate d to Essential (primary) hypertension continue medsstay active Related to Generalized anxiety disorder Medication management Dietary management e ducation, guidance, and counseling Related to Body mass index (BMI) 27.0-27.9, adult annual flu shotneeds dexahealthy diet and exercisefollow up in 6 months Related to Encounter for general adult medical examination without abnormal findings continue medsstay active Related to Generalized anxiety disorder will add amlodipinelow salt diet Related to Essential (primary) hypertension Medication management Counseled on dietary changes Counseled on weight reduction if anything changes, call and we will get U/S Related to Lump of skin of back Dietary management e ducation, guidance, and counseling Related to Body mass index (BMI) 26.0-26.9, adult Medication management continue medslow salt diet Relat ed to Essential hypertension continue medsstay active Related to Generalized anxiety disorder plan for surgery Related to Arth shameka will check bmp Related to Medul tanika cystic kidney Immunizations needs mammogramhealt hy diet and exercisefollow up in 6 months Related to Encounter for general adult medical examination without abnormal findings continue meds as needed Related to Generalized anxiety disorder continue healthy diet Related to Hyperlipidemia, unspecified hyperlipidemia type will continue to monitor Related to Medullary cystic kidney continue medslow salt diet Relat ed to Essential hypertension Fall Risk Prevention Urinary Incontinence Medication management Dietary management e ducation, guidance, and counseling Related to Body mass index (BMI) 26.0-26.9, adult Counseled on weight reduction Counseled on dietary changes will check kidney function and p th Related to Medullary cystic kidney continue medsstay active Related to Generalized anxiety disorder continue medslow salt dietstay a ctive Related to Benign hypertension Medication management Dietary management e ducation, guidance, and counseling Related to Body mass index (BMI) 26.0-26.9, adult continue meloxicam as needed Rel ated to Arthritis continue medslow salt diet Relat ed to HTN will continue to monitor Related to Medullary cystic kidney needs dexaget colono scopyhealthy diet and exercisefollow up in 6 months Related to Encounter for general adult medical examination without abnormal findings continue statin Related to Hyper lipidemia, unspecified hyperlipidemia type continue medsstay active Related to Generalized anxiety disorder Medication management Fall Risk Prevention Dietary management e ducation, guidance, and counseling Related to Body mass index (BMI) 26.0-26.9, adult Urinary Incontinence continue medslow salt diet Relat ed to Essential (primary) hypertension continue lexapro Related to Gene ralized anxiety disorder check bmp Related to Medul tanika cystic kidney continue healthy diet Related to Other hyperlipidemia Dietary management e ducation, guidance, and counseling Related to Body mass index (BMI) 26.0-26.9, adult plan for surgerylow risk per rci for adverse cardiac outcomes Related to Arthritis of joint of toe Dietary management e ducation, guidance, and counseling Related to Body mass index (BMI) 26.0-26.9, adult Medication management annual flu shotneeds colonoscopycontinue healthy diet and exercisefollow up in 6 months Related to Encounter for general adult medical examination without abnormal findings continue healthy diet Related to Hyperlipidemia, unspecified hyperlipidemia type will monitor yearly Related to A ngiomyolipoma continue medslow salt diet Relat ed to Benign hypertension continue medsuse xanax as needed Related to Anxiety and depression will continue to monitor bpo Rel ated to Medullary sponge kidney Medication management Dietary management e ducation, guidance, and counseling Related to Body mass index (BMI) 26.0-26.9, adult at goalcontinue medslow salt t Related to Benign hypertension will check kidney function Relat ed to Medullary sponge kidney continue medsstay active Related to Anxiety and depression Dietary management e ducation, guidance, and counseling Related to Body mass index (BMI) 25.0-25.9, adult Medication management annual flu shotutd with screenin gs Related to Encounter for general adult medical examination without abnormal findings continue lexapro Related to Anxi ety and depression continue rehabuse mobic as neede d Related to Arthritis of knee controlledcontinue medslow salt diet Related to Benign hypertension needs US of kidneys Related to M edullary sponge kidney Dietary management e ducation, guidance, and counseling Related to Body mass index (BMI) 24.0-24.9, adult Urinary Incontinence Medication management Fall Risk Prevention continue medslow salt diet Relat ed to Benign hypertension continue lexapro daily Related t o Anxiety and depression plan for surgerylow risk per [facility] Related to Arthritis of knee Medication management continue lexaprouse xanax as nee ded Related to Anxiety and depression will add mobic Related to Arthr itis at goalcontinue [facility] hospitale[facility] bmp Re lated to Benign hypertension Dietary management e ducation, guidance, and counseling Related to Body mass index (BMI) 25.0-25.9, adult Medication management needs dexa Related to Osteo penia bp controlledprobabl y a component of white coat Related to Benign hypertension follow up with urolo gycontinue low oxalate diet Related to Medullary sponge kidney stable on lexaprouse xanax as ne eded Related to Anxiety and depression doing alrightcontinue to see ort ho Related to Arthritis needs tdapcontinue h ealthy diet and exerciseutd iwth colonosocpy and mammogram Related to Encounter for general adult medical examination without abnormal findings Medication management Assessments Type Assessment Date No Information Patient Care Teams Name Effective Dates (start - stop) Status Members No Information
--- OUTSIDE RECORDS SUMMARY | 2024-04-23 10:47 | XMS_ITS | Referral Summary ---
Author Organization [facility] Address [address] [place] [address] Care Team Providers Care Director Operating Name Role Phone Joao Hinojosa MD Primary Care Provider [phone] Allergies No known active allergies Medications ALPRAZolam [...] Active Active Problems No known active problems Social History Tobacco Use Types Packs/Day Years Used Date Smoking Tobacco: Former Cigarettes Smokeless Tobacco: Never Tobacco Cessation:Counseling Given: Not Answered Comments Unknown Sex and Gender Information Value Date Recorded Sex Assigned at Not on file Legal Sex Female 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 Gender Identity Not on file Sexual Orientation Not on file Last Filed Vital Signs Vital Sign Reading Time Taken Comments Blood Pressure - - Pulse - - Temperature - - Respiratory Rate 18 02/01/2022 10:07 AM PRODUCTION SUPPORT SUPERVISOR Oxygen Saturation - - Inhaled Oxygen Concentration - - Weight 74.8 kg (165 lb) 02/01/2022 10:07 AM PRODUCTION SUPPORT SUPERVISOR Height 175.3 cm (5' 9 ) 02/01/2022 10:07 AM PRODUCTION SUPPORT SUPERVISOR Body Mass Index 24.37 02/01/2022 10:07 AM PRODUCTION SUPPORT SUPERVISOR Plan of Treatment Not on file Insurance MEDICARE FORMERLY [facility], [facility] Care Teams Director Operating Relationship Specialty Start Date End Date Joao Hinojosa MD [address] [place] [address] PCP - General Internal Medicine 01/25/22
--- OUTSIDE RECORDS SUMMARY | 2024-04-23 10:47 | XMS_ITS | Clinical Summary ---
Author Organization [facility] Address [address] [place] [address] Care Team Providers Care Facing Slitter Name Role Phone Joao Hinojosa MD Primary Care Provider [phone] Source Comments [facility] [employer],non-owned Affiliates and Associated Physician Practices is amultiple site organization consisting of ambulatory clinics and hospital sitesin [place], [place], [place] and [place]. This disclosure is being madepursuant to the Care Everywhere program and may not contain all information available regarding this patient. Last updated 17.[facility] [employer] Allergies No known active allergies Immunizations Name [...] Health Maintenance Due Date Last Done Comments BONE DENSITY TESTING 1950 COLOGUARD (AGES 45-75) - COL ON CA SCREENING 1950 COLON MONITORING 1950 COLONOSCOPY - COLON CA SCREENING 1950 CT COLONOGRAPHY - COLON CA SCREENING 1950 Colorectal Cancer Screening 1950 FIT - COLON CA SCREENING 1950 FLEX SIG - COLON CA SCREENING 1950 LIPID TESTING 1950 MAMMOGRAM 1950 MEDICARE AWV 12 MONTHS 1950 HEPATITIS C SCREENING 08/20/1968 DTAP/TDAP/TD VACCINES (1 - Tdap) 1969 PNEUMOCOCCAL VACCINE 50+ (1 of 1 - PCV) 2000 ZOSTER VACCINE (1 of 2) 2000 COVID-19 VACCINE (1 - 2023-2 5 season) 2023 INFLUENZA VACCINE (#1) 2023 01/17/2017 DEPRESSION SCREENING 03/12/2024 Respiratory Syncytial Virus (RSV) Vaccine Pt: or over 60 yrs (1 - 1-dose 75+ series) 2025 HEPATITIS B VACCINE Aged Out No longe r eligible based on patient's age to complete this topic HIB VACCINE Aged Out No longer eligi ble based on patient's age to complete this topic HPV VACCINE Aged Out No longer eligi ble based on patient's age to complete this topic MENINGOCOCCAL (Group B) VACCINE Aged Out No longer eligible based on patient's age to complete this topic MENINGOCOCCAL VACCINE Aged Out No ailyn alfie eligible based on patient's age to complete this topic Care Teams Facing Slitter Relationship Specialty Start Date End Date Joao Hinojosa MD PCP - General Internal Medicine 01/17/17
== END 2024-04-23 09:41 | disposition home or self-care (01) ==
LOC: ANHIMG 09:43
PROVIDERS: PCP Internal Medicine; Visit Provider Internal Medicine
DX: Z12.31 Encounter for screening mammogram for malignant neoplasm of breast (principal)
CPT/HCPCS: 77063; 77067